=== PATIENT | female | born 1950 | race Caucasian/White ===

== ENCOUNTER 2020-08-31 09:17 | Outpatient (NON) | payer MEDICARE, SELFPAY ==
[2020-09-01 13:08] LABS: SARS-CoV-2 RNA PCR Positive
== END 2020-08-31 09:18 ==
PROVIDERS: PCP Internal Medicine; Visit Provider Clinical Nurse Specialist
DX: U07.1 COVID-19 (principal)
CPT/HCPCS: 87635; C9803; U0003

== ENCOUNTER 2020-12-29 15:27 | Outpatient (CLI) | payer MEDICARE, SELFPAY | END 2020-12-29 15:28 | disposition home or self-care (01) | LOC: ANHCOVIDVC 15:27 | PROVIDERS: PCP Internal Medicine | DX: Z23 Encounter for immunization (principal) | CPT/HCPCS: 0001A; 91300 ==

== ENCOUNTER 2021-01-19 15:28 | Outpatient (CLI) | payer MEDICARE, SELFPAY | END 2021-01-19 15:29 | disposition home or self-care (01) | LOC: ANHCOVIDVC 15:28 | PROVIDERS: PCP Internal Medicine | DX: Z23 Encounter for immunization (principal) | CPT/HCPCS: 0002A; 91300 ==

== ENCOUNTER 2021-04-14 17:14 | Emergency (ER) | payer MEDICARE, SELFPAY ==
[2021-04-14 17:20] VITALS: BP 134/74; PULSE 82; RESP 12; TEMP 36.6; O2SAT 99
--- NOTE | 2021-04-14 17:54 | ED.GENADULT ---
HPI - General Adult General Chief complaint: Ear Stated complaint: cant hear Time Seen by Provider: 04/14/21 17:54 Source: patient and RN notes reviewed Mode of arrival: ambulatory Limitations: no limitations History of Present Illness HPI narrative: 70-year-old female presents with complaints of pulsatile/non-pulsatile buzzing/ringing/hissing in the right ear for 1 day. ?Vani reports being at [place] on 04/13/2021 prior to ringing in the ear and decreased hearing, reports had on ear protection attire. ?No treatment. ? History of [place] and wearing hearing aids. ?Denies pain in ears, injury, or drainage from ears. ?Denies any other ear problems, ear disease, noise exposure, hearing status, head injury, and/or symptoms suggesting temporomandibular joint syndrome (TMJ). ?Denies drug toxicity or other medication usage. ?Denies being depressed, anxious, vascular abnormalities, or having insomnia. Denies fever. Denies URI symptoms. ?Denies nausea, vomiting, or abdominal pain. ?Denies syncopal episodes, dizziness, or seizure activity. ?Remains active. ?The patient reports she has not been diagnosed with COVID-19. The patient reports she received 2 Pfizer COVID-19 vaccines. ?The patient reports he is not waiting for the results of a COVID-19 lab test. ?The patient reports she does not have chills, weakness, or fatigue. The patient reports he does not have a new or worsening cough or shortness of breath. ?Denies chest pain. ?The patient reports he does not have any loss of taste or smell, sore throat, and diarrhea. ?Denies recent traveling. Denies concerns for COVID-19 or exposures. ?At this time, the patient is not suspected of having COVID-19. Some parts of this dictation were generated by voice recognition software and may contain typographical and/or grammatical inaccuracies. Related Data Home Medications Medication Instructions Recorded Confirmed omega-3 fatty acids 1,000 mg 1,000 mg PO DAILY 08/01/20 04/14/21 capsule Allergies Allergy/AdvReac Type Severity Reaction Status Date / Time Penicillins Allergy Unknown Hives Verified 04/14/21 17:23 Review of Systems Review of Systems: Narrative: CONSTITUTIONAL: Denies fever, chills, sweats. EYES: Denies visual changes, redness, discharge. ENT: Complains of buzzing/ringing, decreasing hearing in RT ear. Denies rhinorrhea, congestion, sore throat, otalgia. CARDIOVASCULAR: Denies chest pain, palpitations, edema. RESPIRATORY: Denies dyspnea, wheezing, cough. GASTROINTESTINAL: Denies abdominal pain, nausea, vomiting, diarrhea. GENITOURINARY: Denies dysuria, hematuria, abnormal discharge. SKIN: Denies rash or itching. MUSCULOSKELETAL: Denies acute back pain, joint pain, or myalgia. NEUROLOGIC: Denies numbness or focal weakness. PSYCHIATRIC: Denies anxiety or depression. All systems reviewed & are unremarkable except as noted in HPI and below. [facility] Past Medical History Medical History (Updated 04/15/21 @ 00:00 by Background Daemon) Arthralgia Asthma Back pain Chicken pox CTS (carpal tunnel syndrome) Depression Elevated ferritin level GERD (gastroesophageal reflux disease) History of measles, mumps, or rubella Hyperlipidemia Hypertension Kevan's syndrome Polyarthralgia PVCs (premature ventricular contractions) Vitamin D deficiency Surgical History Surgical History (Updated 04/14/21 @ 18:08 by ARIANA aCrroll) History of arthroscopic knee surgery bilateral History of bunionectomy of both great toes Hx of cholecystectomy Family History Family History Father Family history of chronic obstructive pulmonary disease Mother Family history of malignant neoplasm of ovary Other Hypertension Social History Social History (Updated 04/14/21 @ 18:09 by ARIANA Carroll) Smoking status: Never smoker Tobacco type: cigarettes Second hand tobacco smoke exposure: No Alcohol intake: cur
== END 2021-04-14 18:18 | disposition home or self-care (01) ==
PROVIDERS: Emergency Provider Nurse Practitioner Family; PCP Internal Medicine
DX: H93.11 Tinnitus, right ear (principal); H91.91 Unspecified hearing loss, right ear; J45.909 Unspecified asthma, uncomplicated; K21.9 Gastro-esophageal reflux disease without esophagitis; E78.5 Hyperlipidemia, unspecified; I10 Essential (primary) hypertension; D86.9 Sarcoidosis, unspecified; M19.90 Unspecified osteoarthritis, unspecified site; F32.9 Major depressive disorder, single episode, unspecified
CPT/HCPCS: 99211; G0463

== ENCOUNTER 2021-12-04 08:24 | Outpatient (CLI) | payer MEDICARE, SELFPAY ==
--- NOTE | ~2021-12-04 | US_ITS ---
EXAMINATION: US arterial ankle brachial ind EXAM DATE: 12/04/2021 08:56 INDICATION: I73.9 - Peripheral vascular disease, unspecified . TECHNIQUE: Segmental pressures and plethysmographic and Doppler waveforms of the brachial and lower e xtremity arteries were obtained. There is no prior study for comparison. FINDINGS: Right and left brachial artery pressures of 149 mm Hg and 156 mm Hg, respectively, are concordant (no rmal difference <= 30 mmHg). RIGHT LEG: The ankle-brachial index (LILO) is 1.05 (normal >= 0.9-1). The great toe-brachial index (TBI) is 0.65 (normal >= 0.65). The lower extremity ratios, segmental pressure gradients as follows; Dorsalis pedis: 1.02 (159 mmHg). Posterior tibial: 1.05 (164 mmHg). (Normal gradients <= 20-30 mmHg between adjacent levels on the same leg or the same levels on the two legs). Arterial waveforms are biphasic. LEFT LEG: The ankle-brachial index (LILO) is 1.08 (normal >= 0.9-1). The great toe-brachial index (TBI) is 0.89 (normal >= 0.65). The lower extremity ratios, segmental pressure gradients as follows; Dorsalis pedis: 1.04 (162 mmHg). Posterior tibial: 1.08 (168 mmHg). (Normal gradients <= 20-30 mmHg between adjacent levels on the same leg or the same levels on the two legs). Arterial waveforms are biphasic. IMPRESSION: 1. Right ankle-brachial index 1.05, normal. 2. Left ankle-brachial index 1.08, normal. 3. Segmental pressures as above. Reviewed, dictated and finalized at location B. RITY OPERATIONS ANALYST
== END 2021-12-04 08:25 | disposition home or self-care (01) ==
LOC: ANHIMG 08:27
PROVIDERS: PCP Internal Medicine; Visit Provider Nurse Practitioner
DX: I73.9 Peripheral vascular disease, unspecified (principal)
CPT/HCPCS: 93922

== ENCOUNTER 2023-01-02 08:20 | Outpatient (CLI) | payer MEDICARE, SELFPAY ==
--- NOTE | 2023-01-15 14:25 | WPDHOMESLEEP ---
Sleep Study - Home Unattended Date of Study: 01/02/23 Ordering Provider: Annabelle Araiza NP Interpreting Provider: Virginia Evans, DO Home Sleep Study Type: Watch PAT Height: 1.63 m Weight: 72.575 kg Body Mass Index: 27.4 Neck Circumference (inches): 13.25 [place]: 13 Reason for Sleep Study Snoring, fatigue Sleep History The patient is a 72-year-old female with hypertension, asthma, depression, GERD, hyperlipidemia, hypertension, diabetes, PVCs and Kevan's syndrome that had a sleep study ordered by her primary care for evaluation of sleep apnea. The patient denies awakening from sleep short of breath. She occasionally awakens at night with heartburn, belching or cough. She occasionally snores but it is rarely loudly enough that others complain. She occasionally has trouble sleeping when she has a cold. She denies waking up gasping for air throughout the night. She denies having breathing problems at night observed by herself or others. She occasionally sweats excessively at night. She rarely has heart palpitations or irregular heartbeats during the night. She frequently falls asleep during the day but never while driving. She denies sleep paralysis and cataplexy. She frequently experiences vivid dreamlike scenes upon awakening or falling asleep. She denies having trouble at school or work due to sleepiness. He denies feeling afraid of going to sleep. She rarely has nightmares. She occasionally remembers her dreams. She frequently has thoughts racing through her mind. She denies feeling sad or depressed. She rarely has anxiety. She rarely has muscular tension. She rarely notices parts of her body jerk. She denies kicking during the night. She frequently has crawling and aching feelings in her legs and occasionally has leg pain during the night. She rarely awakens with morning jaw pain. She is constantly bothered by pain during the day but rarely awakened by pain during the night. She constantly wakes up feeling stiff in the morning. She constantly wakes up with sore or achy muscles. She constantly wakes up with pain in the neck, spine and other joints. She goes to bed at 11:30 p.m. on both weekdays and weekends. She is able to fall asleep within a few minutes. She wakes up 1-2 times throughout the night to urinate and is able to fall back asleep within a few minutes. She wakes up between 8:30-9 a.m. on weekdays and weekends. She typically gets 7-8 hours of sleep per night. She will stay in bed for 10 minutes after waking up in the morning. She currently lives with her . She does not consume any caffeinated beverages within 2 hours of bedtime. She does not engage in physical exercise before bedtime. She will occasionally read and watch television before falling asleep. He will take naps in the afternoon but they are not refreshing. She will occasionally have a caffeinated beverage throughout the day. She denies tobacco, alcohol and recreational drug use. [facility] Past Medical History Medical History Arthralgia Asthma Back pain Chicken pox CTS (carpal tunnel syndrome) Depression Elevated ferritin level GERD (gastroesophageal reflux disease) History of measles, mumps, or rubella Hyperlipidemia Hypertension Kevan's syndrome Polyarthralgia PVCs (premature ventricular contractions) Type 2 diabetes mellitus Vitamin D deficiency Surgical History Surgical History H/O total knee replacement (~03/2022) History of arthroscopic knee surgery bilateral History of bunionectomy of both great toes Hx of cholecystectomy Family History Family History Father Family history of chronic obstructive pulmonary disease Mother Family history of malignant neoplasm of ovary Other Hypertension Social History Social History (Reviewed
[2023-01-15 14:35] VITALS: BMI 27.4
== END 2023-01-03 13:02 | disposition home or self-care (01) ==
PROVIDERS: PCP Internal Medicine; Visit Provider Nurse Practitioner
DX: R40.0 Somnolence (principal); R06.83 Snoring; G47.33 Obstructive sleep apnea (adult) (pediatric)
CPT/HCPCS: 95800

== ENCOUNTER 2023-09-17 07:58 | Outpatient (CLI) | payer MEDICARE, SELFPAY ==
--- NOTE | ~2023-09-17 | CT_ITS ---
EXAMINATION: CT abdomen pelvis wo/w con DATE: 09/17/2023 08:45 INDICATION: Microscopic hematuria. TECHNIQUE: Computed tomography (CT) of the abdomen and pelvis was performed without and with intraven ous contrast using a total of 130 mL Omnipaque-350 intravenous contrast with a double-bolus technique for simultaneous opacification of the renal parenchyma and renal collecting system. Automated exposu re control and iterative reconstruction technique were employed. The dose-length product was 1886.61 mGy-cm. COMPARISON: None FINDINGS: The visualized portions of the lung bases demonstrate mild atelectasis. No pleural effusion. The hear t size is normal. There are coronary artery calcifications. No pericardial effusion. There is a small sliding hiatal hernia. The liver and spleen are normal. There are changes of cholecystectomy. The pa ncreas and adrenal glands are normal. There is no urolithiasis. There are cysts in the kidneys measur ing up to 4 mm on the left. The ureters are well opacified and are normal. The bladder is normal. The re is diverticulosis of the colon without evidence of diverticulitis. There is a 3.0 cm cyst in left ovary, likely benign. Aortic atherosclerosis is noted. There are no pathologically enlarged lymph nod es. There is no free intraperitoneal fluid. There is severe lower lumbar spondylosis. There is modera te thoracic spondylosis. IMPRESSION: 1. No etiology for hematuria. 2. 3.0 cm cyst in left ovary, likely benign. Pelvis ultrasound is recommended in one year. Reviewed, dictated and finalized at location E. PER IMPRESSION: 1. No etiology for hematuria. 2. 3.0 cm cyst in left ovary, likely benign. Pelvis ultrasound is recommended i n one year.
[2023-09-17 08:26] LABS: Estimated Glomerular Filt Rate > 60
== END 2023-09-17 07:59 | disposition home or self-care (01) ==
PROVIDERS: PCP Internal Medicine; Visit Provider Nurse Practitioner Adult Health
DX: R31.29 Other microscopic hematuria (principal); N83.202 Unspecified ovarian cyst, left side
CPT/HCPCS: 74178; Q9967

== ENCOUNTER 2023-11-14 07:55 | Outpatient (CLI) | payer MEDICARE, SELFPAY ==
--- NOTE | ~2023-11-14 | DEXA_ITS ---
Bone Density Report Name: HUGO CULVER Age: 73 Sex: Female Ethnicity: White Date of : 1950 Indication: postmenopausal; screening for osteoporosis; height loss; Referring Provider: ALEXEI STEIN Study: Bone densitometry was performed. Exam Date: November 14, 2023 Accession number: [id number] Bone Density: Region BMD T-score Z-score Classification AP Spine(L1-L4) 0.946 -0.9 1.3 Normal Femoral Neck (Left) 0.703 -1.3 0.6 Osteopenia Total Hip (Left) 0.796 -1.2 0.4 Osteopenia Femoral Neck (Right) 0.729 -1.1 0.8 Osteopenia Total Hip (Right) 0.793 -1.2 0.4 Osteopenia Total Hip Mean 0.795 -1.2 0.4 Osteopenia World Health Organization criteria for BMD impression classify patients as: Normal (T-score at or above -1.0), Osteopenia (T-score between -1.0 and -2.5), or Osteoporosis (T-score at or below -2.5). 10-year Fracture Risk(1): Major Osteoporotic Fracture 9.8% Hip Fracture 1.4% Reported Risk Factors: [place] (), Neck BMD=0.703, BMI=29.8 (1) FRAX(R) Version 3.08. Fracture probability calculated for an untreated patient. Fracture probability may be lower if the patient has received treatment. Clinical Information Provided by Patient: Patient maximum height was 64.5 Menopause Age: 48 Onset of menses at age 14 Number of children 2 Impression: The patient has low bone mass, based on the Left Femoral Neck T-score. The patient has an estimated ten-year risk of hip fracture of 1.4% and an estimated ten-year risk of major fracture of 9.8%, based on the WHO FRAX algorithm. Discussion: BONE DENSITY IS LOW AT ONE OR MORE SKELETAL SITES. This patient's lowest T-score is low at one or more skeletal sites. It meets the World Health Organization's (WHO) criteria for ?low bone mass? (T-score between -1.0 and -2.5). The patient's 10-year risk of fracture as calculated by FRAX is less than the threshold where pharmacological therapy is recommended by the National Osteoporosis Foundation (NOF). However, all treatment decisions require clinical judgment and consideration of individual patient factors, including patient preferences, comorbidities, previous drug use, risk factors not captured in the FRAX model (e.g., frailty, falls, vitamin D deficiency, increased bone turnover, interval significant decline in bone density) and possible under or overestimation of fracture risk by FRAX. The patient should follow a healthful lifestyle (good nutrition with adequate calcium and vitamin D, and appropriate weight-bearing exercise). Follow-Up: Consider repeating this study in 2 to 3 years to reassess this patient's status, or sooner if there is some new clinical indication. Reported by: VANESSA on 11/14/2023 8:22:00 AM. Reviewed, dictated
== END 2023-11-14 07:56 | disposition home or self-care (01) ==
PROVIDERS: PCP Internal Medicine; Visit Provider Nurse Practitioner
DX: M85.89 Other specified disorders of bone density and structure, multiple sites (principal); Z78.0 Asymptomatic menopausal state
CPT/HCPCS: 77080

== ENCOUNTER 2023-11-27 19:42 | Observation (INO) | payer MEDICARE, SELFPAY ==
--- NOTE | ~2023-11-27 | CT_ITS ---
EXAMINATION: CT abdomen pelvis w con DATE: 11/27/2023 21:28 INDICATION: Right lower quadrant abdominal pain TECHNIQUE: Computed tomography (CT) of the abdomen and pelvis was performed with 100 mL Omnipaque-350 intravenous contrast. Automated exposure control and iterative reconstruction technique were employe d. The dose-length product was 534.30 mGy-cm. COMPARISON: None FINDINGS: Mild atelectasis at the bilateral lung bases. Heart size is normal. No pericardial or pleural effusio n. Small amount of atherosclerotic coronary artery calcification. Mild intra and extra hepatic biliar y ductal dilation which is within normal limits post cholecystectomy with surgical clips the gallblad sarwat fossa. Spleen, pancreas, bilateral adrenal glands and kidneys are normal. Bladder and uterus are normal. Unchanged small bilateral adnexal cysts, the larger on the left measuring 2.8 cm. There is so me trace stranding surrounding the dilated fluid-filled appendix which measures 1.1 cm maximal diamet er consistent with acute appendicitis. There is suggestion of a 5 mm obstructing appendicolith at the appendiceal orifice. There are few diverticula along the sigmoid colon without adjacent comparison t o suggest diverticular colitis. No bowel obstruction. Small fat-containing umbilical hernia. No free intraperitoneal gas or fluid. No pathologically enlarged abdominal or pelvic lymphadenopathy. Severe lower lumbar spondylosis. IMPRESSION: 1. Acute appendicitis. Dr. Hickey discussed these findings with Dr. Coyle at 9:38 PM. Reviewed, dictated and finalized at location A. S DESIGNER IMPRESSION: 1. Acute appendicitis. Dr. Hickey discussed these findings with Dr. Leonides arzola t 9:38 PM.
[2023-11-27 19:58] VITALS: BP 139/58; PULSE 87; RESP 17; TEMP 37.2; O2SAT 100
[2023-11-27] MEDS: SODIUM CHLORIDE 0.9% IV 1,000 ML 999 ML IV CONT (20:21)
[2023-11-27] MEDS: MORPHINE SULFATE (*CRX) 4 MG/ML INJ IV PUSH (20:23)
[2023-11-27] MEDS: ONDANSETRON INJ 4 MG/2 ML VIAL IV PUSH (20:23)
[2023-11-27 20:29] VITALS: BP 146/90; PULSE 70; RESP 15; TEMP 36.7; O2SAT 99
[2023-11-27 20:47] LABS: Basophils Percent Auto 0.3 % (0.2-1.2); Eosinophils Percent Auto 0.3 % (0-4.4); Hematocrit 37.7 % (37.0-47.0); Hemoglobin 12.3 g/dL (12.0-15.0); Immature Granulocyte Absolute 0.05 K/mm3 (0.00-0.031); Immature Granulocyte Percent A 0.4 % (0-0.5); Lymphocytes Absolute Auto 0.88 K/mm3 (0.9-3.2); Lymphocytes Percent Auto 7.1 % (18.3-44.2); Mean Corpuscular HGB Conc 32.6 g/dl (32-36); Mean Corpuscular Hemoglobin 28.6 pg (26-34); Mean Corpuscular Volume 87.7 fl (80-100); Mean Platelet Volume 10.6 fl (7.4-10.4); Monocytes Absolute Auto 0.6 K/mm3 (0.1-0.6); Monocytes Percent Auto 4.6 % (2.6-8.5); Neutrophils Absolute Auto 10.9 K/mm3 (1.3-6.7); Neutrophils Percent Auto 87.3 % (45.5-73.1); Platelet Count Result 185 k/mm3 (150-375); Red Cell Distribution Width 13.2 % (11.5-14.5); White Blood Count 12.5 K/mm3 (4.5-10.0)
--- NOTE | 2023-11-27 21:07 | ED.ABDPAIN ---
HPI - Abdominal Pain General Chief Complaint: Abdominal Pain Stated Complaint: RLQ pain Time Seen by Provider: 11/27/23 20:08 History of Present Illness HPI narrative: Patient is a 73-year-old female who presents ER with abdominal pain. Reports generalized discomfort beginning this afternoon that has now settled in the right lower quadrant. She thought it was initially gas. No diarrhea or constipation. No fevers chills or sweats. She is without nausea or vomiting. Pain is worse with movement. No alleviating factors. Related Data Home Medications Medication Instructions Recorded Confirmed aspirin 81 mg tablet,delayed 81 mg PO DAILY 11/09/22 11/11/23 release (Adult Low Dose Aspirin) Allergies Allergy/AdvReac Type Severity Reaction Status Date / Time Penicillins Allergy Unknown Hives Verified 11/11/23 10:09 Review of Systems Review of Systems: All systems reviewed & are unremarkable except as noted in HPI and below Constitutional: Constitutional: Denies chills, Denies fatigue and Denies fever(s) ENT: Reports system reviewed and no additional complaints, except as documented Cardiovascular: Cardiovascular: Reports no additional cardiovascular complaints Respiratory: Respiratory: Reports no additional respiratory complaints Gastrointestinal: Gastrointestinal: Reports abdominal pain, Reports bloating, Denies constipation, Denies diarrhea, Denies nausea and Denies vomiting Genitourinary: Genitourinary: Reports no additional female genitourinary complaints [facility] Past Medical History Medical History (Updated 11/27/23 @ 21:57 by Darshan Coyle MD) Arthralgia Asthma Back pain Chicken pox CTS (carpal tunnel syndrome) Depression Elevated ferritin level GERD (gastroesophageal reflux disease) History of measles, mumps, or rubella Hyperlipidemia Hypertension Kevan's syndrome Polyarthralgia PVCs (premature ventricular contractions) Type 2 diabetes mellitus Vitamin D deficiency Surgical History Surgical History H/O total knee replacement (~03/2022) History of arthroscopic knee surgery bilateral History of bunionectomy of both great toes Hx of cholecystectomy Family History Family History (Updated 11/11/23 @ 10:13 by Sarahy Villavicencio CMA) Father Family history of chronic obstructive pulmonary disease Mother Family history of malignant neoplasm of ovary Daughter Colorectal cancer Other Hypertension Social History Social History Social History: Caffeine-none Smoking status: Never smoker Tobacco type: cigarettes Second hand tobacco smoke exposure: No Alcohol intake: current Alcohol use details: occasional Substance use: never Substance use type: does not use Lack of Transportation: No Lack of Food: Never True Current Housing: I Have Housing Concerned About Future Housing: No Difficulty Paying Gas/Electric Bills: No Difficulty Paying for Meds: No Currently Unemployed: No Education: High School Diploma/GED Difficulty w/ Childcare or Family Care: No Living arrangements: with family Occupation/Education: retired Gender identity (if verbalized by the patient): Female Sexual Orientation (if Verbalized by the Patient): Straight or Heterosexual Exam Narrative: GENERAL: Well-appearing, well-nourished, and in no acute distress. HEAD: Normocephalic, atraumatic. ENT: Mucous membranes moist. NECK: Supple. CHEST: Clear to auscultation. No respiratory distress. HEART: Regular rate and rhythm. Normal peripheral pulses. ABDOMEN: Soft, very tender to palpation right lower quadrant with guarding,nondistended, normal active bowel sounds. EXTREMITIES: Normal range of motion. No edema. SKIN: Warm, dry, no rash. NEURO: Alert and oriented x3. PSYCH: Normal mood and affect. Course Course Emergency Course: Patient resting comfortably.
[2023-11-27 21:14] LABS: Alanine Aminotransferase 23 U/L (6-35); Albumin Level 4.3 g/dL (3.5-5.1); Alkaline Phosphatase 88 U/L (38-126); Anion Gap 9 mmol/L (8-16); Aspartate Amino Transferase 39 U/L (14-36); Bilirubin,Total 0.9 mg/dL (0.2-1.3); Blood Urea Nitrogen 20 mg/dL (7-17); Calcium 9.1 mg/dL (8.4-10.2); Carbon Dioxide 27 mmol/L (22-30); Chloride 103 mmol/L (98-107); Estimated CRCL calculation 53 ml/min; Estimated Glomerular Filt Rate > 60; Glucose 120 mg/dL (65-110); Lipase 94 U/L (23-300); Potassium 3.7 mmol/L (3.4-5.0); Sodium 139 mmol/L (137-145)
[2023-11-27 21:17] LABS: Appearance Urine Clear (Clear); Bacteria Urine None Seen /hpf; Bilirubin Urine Negative (Negative); Color Urine Yellow (Yellow); Glucose Urine UA Negative (Negative); Ketones Urine Trace mg/dL (Negative); Leukocyte Esterase Ur Negative LEU/UL (Negative); Nitrate Urine Negative (Negative); Non Pathogenic Casts 0-2; Protein Urine Negative (Negative); Specific Grav Ur 1.011 (1.001-1.035); Squamous Epithelial Cell Urine None seen /hpf (Few); Urobilinogen Urine 0.2 mg/dL (<2.0); WBC Urine 0-5 /hpf; pH Urine 7.5 (5.0-9.0)
[2023-11-27 21:22] LABS: Add Urine Microscopic? YES
[2023-11-27] MEDS: SODIUM CHLORIDE 0.9% IV 1,000 ML 125 ML IV CONT (22:38)
[2023-11-27] MEDS: metroNIDAZOLE 500 MG/ISO 100ML 500 MG/100 ML BAG 100 MG IVPB (22:38)
[2023-11-27 22:43] VITALS: BP 137/94; PULSE 83; RESP 17; O2SAT 95
[2023-11-27 22:44] VITALS: PULSE 84
[2023-11-27 23:30] VITALS: O2SAT 95
--- NOTE | 2023-11-27 23:30 | PC.NURSE ---
Patient has hx of using CPAP at night to sleep. While patient was falling asleep her SPO2 fell to 88%. 2L/min of oxygen via nasal cannula applied and SPO2 now 95%.
[2023-11-28] VITALS (8 sets, daily range): BP systolic 124–151; BP diastolic 45–85; PULSE 68–85; RESP 12–20; TEMP 36.6–37.7; O2SAT 95–100; BMI 29.2
--- NOTE | 2023-11-28 00:34 | ADMGEN ---
This patient, Kayleen Nugent, was admitted to [facility] Surg Room 306-02. Patient/family oriented to hospital policies and general routines including ID bracelet, bed and alarms, visiting hours, pain management, procedures, bathroom and other care routines, personal items, smoking policy, room service/diet, and visiting hours. Information on how to activate the Rapid Response Team has been discussed. Patient/Family are encouraged to report perceived risks to care and to ask questions if they do not understand what they are told or what they should do.
--- NOTE | 2023-11-28 00:41 | ADMGEN ---
This patient, Kayleen Nugent, was admitted to [facility] Surg Room 306-02. Patient/family oriented to hospital policies and general routines including ID bracelet, bed and alarms, visiting hours, pain management, procedures, bathroom and other care routines, personal items, smoking policy, room service/diet, and visiting hours. Information on how to activate the Rapid Response Team has been discussed. Patient/Family are encouraged to report perceived risks to care and to ask questions if they do not understand what they are told or what they should do.
[2023-11-28] MEDS: metroNIDAZOLE 500 MG/ISO 100ML 500 MG/100 ML BAG 100 MG IVPB (06:31)
[2023-11-28] MEDS: MORPHINE SULFATE (*CRX) 2 MG/ML INJ IV PUSH (06:32)
[2023-11-28 07:14] LABS: Basophils Percent Auto 0.2 % (0.2-1.2); Eosinophils Percent Auto 0.2 % (0-4.4); Hematocrit 36.6 % (37.0-47.0); Hemoglobin 11.4 g/dL (12.0-15.0); Immature Granulocyte Absolute 0.05 K/mm3 (0.00-0.031); Immature Granulocyte Percent A 0.4 % (0-0.5); Lymphocytes Absolute Auto 1.24 K/mm3 (0.9-3.2); Lymphocytes Percent Auto 10.1 % (18.3-44.2); Mean Corpuscular HGB Conc 31.1 g/dl (32-36); Mean Corpuscular Hemoglobin 28.4 pg (26-34); Mean Corpuscular Volume 91.3 fl (80-100); Mean Platelet Volume 10.6 fl (7.4-10.4); Monocytes Absolute Auto 0.7 K/mm3 (0.1-0.6); Monocytes Percent Auto 5.4 % (2.6-8.5); Neutrophils Absolute Auto 10.3 K/mm3 (1.3-6.7); Neutrophils Percent Auto 83.7 % (45.5-73.1); Platelet Count Result 180 k/mm3 (150-375); Red Blood Count 4.01 M/mm3 (4.2-5.4); Red Cell Distribution Width 13.2 % (11.5-14.5); White Blood Count 12.3 K/mm3 (4.5-10.0)
[2023-11-28 07:51] LABS: Anion Gap 6 mmol/L (8-16); Blood Urea Nitrogen 12 mg/dL (7-17); Calcium 8.5 mg/dL (8.4-10.2); Carbon Dioxide 27 mmol/L (22-30); Chloride 105 mmol/L (98-107); Estimated CRCL calculation 54 ml/min; Estimated Glomerular Filt Rate > 60; Glucose 108 mg/dL (65-110); Potassium 3.6 mmol/L (3.4-5.0); Sodium 138 mmol/L (137-145)
--- NOTE | 2023-11-28 07:56 | PM.IMHP ---
H&P: HPI History of Present Illness Date/Time: 11/28/23 07:56 Chief Complaint: Acute appendicitis Narrative: Pt presented to the ER last night with 8 hr hx of lower abd pain that localized to RLQ abd. WBC 07140 in ER, VSS. CT abd/pelvis showed non ruptured acute appendicitis with appendix fluid filled and diameter 11 mm. Trace periappendical fluid and some min periappendiceal inflammation. Started on IV abx and kept NPO. WBC still about [id number] this am. Pain is RLQ c/w acute appendicitis on exam. Review of Systems Review of Systems: The remainder of the review of systems to include constitutional, HEENT, cardiovascular, respiratory, GI, , integumentary, musculoskeletal, endocrine, immunologic, hematologic, psychiatric, and neurologic are all negative except for which is mentioned above in the HPI. [facility] Past Medical History Medical History Arthralgia Asthma Back pain Chicken pox CTS (carpal tunnel syndrome) Depression Elevated ferritin level GERD (gastroesophageal reflux disease) History of measles, mumps, or rubella Hyperlipidemia Hypertension Kevan's syndrome Polyarthralgia PVCs (premature ventricular contractions) Type 2 diabetes mellitus Vitamin D deficiency Surgical History Surgical History H/O total knee replacement (~03/2022) History of arthroscopic knee surgery bilateral History of bunionectomy of both great toes Hx of cholecystectomy Family History Family History Father Family history of chronic obstructive pulmonary disease Mother Family history of malignant neoplasm of ovary Daughter Colorectal cancer Other Hypertension Social History Social History Social History: Caffeine-none Smoking status: Never smoker Tobacco type: cigarettes Second hand tobacco smoke exposure: No Alcohol intake: never Alcohol use details: occasional Substance use: never Substance use type: does not use Do You Feel Safe in your Home?: Yes Lack of Transportation: No Lack of Food: Never True Current Housing: I Have Housing Concerned About Future Housing: No Difficulty Paying Gas/Electric Bills: No Difficulty Paying for Meds: No Currently Unemployed: No Education: High School Diploma/GED Difficulty w/ Childcare or Family Care: No Living arrangements: with family Occupation/Education: retired Gender identity (if verbalized by the patient): Female Sexual Orientation (if Verbalized by the Patient): Straight or Heterosexual Spiritual care concerns: No Meds Home Medications and Allergies Home Medications Medication Instructions Recorded Confirmed Type escitalopram oxalate 5 mg tablet See Rx Instructions .Route 08/27/22 11/28/23 Rx .COMPLEX #45 tabs aspirin 81 mg tablet,delayed 81 mg PO DAILY 11/09/22 11/28/23 History release (Adult Low Dose Aspirin) lisinopril 5 mg tablet See Rx Instructions .Route 09/13/23 11/28/23 Rx .COMPLEX #90 tabs amlodipine 2.5 mg tablet See Rx Instructions .Route 09/26/23 11/28/23 Rx .COMPLEX #90 tabs omeprazole 40 mg capsule,delayed 40 mg PO DAILY #90 caps 09/30/23 11/28/23 Rx release evolocumab 140 mg/mL subcutaneous See Rx Instructions .Route 11/04/23 11/28/23 Rx pen injector (Sisi Martin) .COMPLEX #6 mL Allergies Allergy/AdvReac Type Severity Reaction Status Date / Time Penicillins Allergy Unknown Hives Verified 11/28/23 07:59 Vital Signs Vital Signs - 24 hr 11/27/23 19:58 11/27/23 20:29 11/27/23 22:43 Temperature 37.2 C 36.7 C Pulse Rate 87 70 83 Respiratory Rate 17 15 17 Blood Pressure 139/58 L 146/90 H 137/94 H Pulse Oximetry 100 99 95 Oxygen Delivery Room Air Oxygen Flow Rate 11/27/23 22:44 11/27/23 23:30 11/28/23 00:03 Temperature 36.7 C Pulse Rate 84
--- NOTE | 2023-11-28 07:56 | WPDANESEPP ---
Anes - Eval Pre Procedure Procedure: Operation Date: 11/28/23 08:00 Proposed Procedures p Laparoscopic Appendectomy - Reed Zamora MD Date/Time: 11/28/23 07:56 Pre Op Diagnosis: Appendicitis Patient Data Age: 73 Gender: F Height: 1.6 m Weight: 75 kg Last Vital Signs Temp 97.9 F 11/28/23 06:00 Pulse 74 11/28/23 06:00 Resp 18 11/28/23 06:00 BP 138/85 11/28/23 06:00 Pulse Ox 99 11/28/23 06:00 O2 Del Method Nasal Cannula 11/27/23 23:30 O2 Flow Rate 2 11/27/23 23:30 Allergies Allergy/AdvReac Type Severity Reaction Status Date / Time Penicillins Allergy Unknown Hives Verified 11/11/23 10:09 Home Medications Medication Instructions Recorded Confirmed Type escitalopram oxalate 5 mg tablet See Rx Instructions .Route 08/27/22 11/28/23 Rx .COMPLEX #45 tabs aspirin 81 mg tablet,delayed 81 mg PO DAILY 11/09/22 11/28/23 History release (Adult Low Dose Aspirin) lisinopril 5 mg tablet See Rx Instructions .Route 09/13/23 11/28/23 Rx .COMPLEX #90 tabs amlodipine 2.5 mg tablet See Rx Instructions .Route 09/26/23 11/28/23 Rx .COMPLEX #90 tabs omeprazole 40 mg capsule,delayed 40 mg PO DAILY #90 caps 09/30/23 11/28/23 Rx release evolocumab 140 mg/mL subcutaneous See Rx Instructions .Route 11/04/23 11/28/23 Rx pen injector (Sisi Martin) .COMPLEX #6 mL Laboratory Tests 11/27/23 11/27/23 11/28/23 20:24 21:04 06:51 WBC 12.5 H K/mm3 12.3 H K/mm3 (4.5-10.0) (4.5-10.0) RBC 4.30 M/mm3 4.01 L M/mm3 (4.2-5.4) (4.2-5.4) Hgb 12.3 g/dL 11.4 L g/dL (12.0-15.0) (12.0-15.0) Hct 37.7 % 36.6 L % (37.0-47.0) (37.0-47.0) MCV 87.7 fl 91.3 fl (80-100) (80-100) MCH 28.6 pg 28.4 pg (26-34) (26-34) MCHC 32.6 g/dl 31.1 L g/dl (32-36) (32-36) RDW 13.2 % 13.2 % (11.5-14.5) (11.5-14.5) Plt Count 185 k/mm3 180 k/mm3 (150-375) (150-375) MPV 10.6 H fl 10.6 H fl (7.4-10.4) (7.4-10.4) Immature Gran % (Auto) 0.4 % 0.4 % (0-0.5) (0-0.5) Neut % (Auto) 87.3 H % 83.7 H % (45.5-73.1) (45.5-73.1) Lymph % (Auto) 7.1 L % 10.1 L % (18.3-44.2) (18.3-44.2) [place] % (Auto) 4.6 % 5.4 % (2.6-8.5) (2.6-8.5) Eos % (Auto) 0.3 % 0.2 % (0-4.4) (0-4.4) Baso % (Auto) 0.3 % 0.2 % (0.2-1.2) (0.2-1.2) Lymph # (Auto) 0.88 L K/mm3 1.24 K/mm3 (0.9-3.2) (0.9-3.2) [place] # (Auto) 0.6 K/mm3 0.7 H K/mm3 (0.1-0.6) (0.1-0.6) Eos # (Auto) 0.0 K/mm3 0.0 K/mm3 (0-0.3) (0-0.3) Baso # (Auto) 0.0 K/mm3 0.0 K/mm3 (0.0-0.1) (0.0-0.1) Abs Immat Gran (auto) 0.05 H K/mm3 0.05 H K/mm3 (0.00-0.031) (0.00-0.031) Absolute Neuts (auto) 10.9 H K/mm3 10.3 H K/mm3 (1.3-6.7) (1.3-6.7) Absolute Nucleated RBC 0.0 K/mm3 0.0 K/mm3 (0.0-0.012) (0.0-0.012) Nucleated RBC % 0.0 % 0.0 % (0.0-0.2) (0.0-0.2) Sodium 139 mmol/L 138 mmol/L (137-145) (137-145) Potassium 3.7 mmol/L 3.6 mmol/L (3.4-5.0) (3.4-5.0) Chloride 103 mmol/L 105 mmol/L (98-107) (98-107) Carbon Dioxide 27 mmol/L 27 mmol/L (22-30) (22-30) Anion Gap 9 mmol/L 6 L mmol/L (8-16) (8-16) BUN 20 H mg/dL 12 D mg/dL (7-17) (7-17) Creatinine 0.80 mg/dL 0.80 mg/dL (0.7-1.0) (0.7-1.0) Estim Creat Clear Calc 53 ml/min 54 ml/min Estimated GFR > 60 > 60 (59 - ) (59 - ) Glucose 120 H mg/dL 108 mg/dL (65-110) (65-110) Calcium 9.1 mg/dL 8.5 mg/dL (8.4-10.2) (8.4-10.2) Total Bilirubin 0.9 mg/dL (0.2-1.3) AST 39 H U/L (14-36) ALT 23 U/L (6-35) Alkaline Phosphatase 88 U/L (38-126) Total Protein 7.0 g/dL (6.3-8.2) Albumin 4.3 g/dL (3.5-5.1) Lipase 94 U/L (23-300) Urine Color Yellow (Yellow) Urine Appearance Clear
--- NOTE | 2023-11-28 07:59 | P.PNAN_ITS ---
Anes - Eval Final PreProcedure Day of Procedure 11/28/23 07:59 Patient weight: overweight Heart: regular rate and rhythm Lungs: clear to auscultation Airway: Mallampati scale class II Neurological: alert and oriented Last oral intake: >/= 8 hours ASA classification: III Emergent: no Anesthetic plan: proceed Anesthesia type and monitoring: general ETT and standard monitoring Results Review: All pre-operative results and documents have been reviewed as part of the pre- operative evaluation. Informed Consent: The patient's anesthetic plan and its attendant risks and benefits were discussed with the patient/family/POA. Questions were solicited and answers provided to the satisfaction of the patient/family/POA.
--- NOTE | 2023-11-28 08:06 | WPDHPUPDATE1 ---
History and Physical Update Update Date/Time: 11/28/23 08:06 History and Physical has been reviewed, including an updated exam of the patient. There are NO changes in the patient's condition. Risks, benefits, and alternatives have been discussed and questions answered. Patient agrees to proceed with procedure.
[2023-11-28] MEDS: LIDO 1%/EPINEPHRINE 1:100,000 50 ML VIAL 20 ML INFILTRATE (08:51)
[2023-11-28] MEDS: BUPivacaine HCL 0.5% PF 30 ML VIAL INFILTRATE (08:52)
[2023-11-28] MEDS: LACTATED RINGERS 1,000 ML 30 ML IV CONT ×2 (09:09→09:23)
--- NOTE | 2023-11-28 09:39 | W.PM.PROC2 ---
Procedure Note - Detailed Date of Procedure 11/28/23 Pre-op Diagnosis Acute appendicitis Post-op Diagnosis Same Procedure Performed Laparoscopic appendectomy. Surgeon Reed Zamora MD Shoveler MARITZA Kruger Anesthesia General Indications Patient is a 73-year-old white female presented to the emergency room with a 8 to 12 hour history of worsening lower abdominal pain which localized to right lower quadrant the abdomen. Workup in the emergency room showed normal white blood cell count and she was hemodynamically stable. Exam revealed point tenderness in the right lower quadrant the abdomen over Jenna point. CT scan abdomen pelvis was performed showing a dilated chief and fluid-filled appendix measuring up to 11mm in diameter with what appeared to be a small appendicolith at the appendiceal orifice. There was some mild periappendiceal inflammation. She is being brought to the operating now for emergent laparoscopic appendectomy. Findings The appendix was inflamed starting at the base extending to the midportion of the appendix. There is no necrosis of the appendiceal wall. There is no periappendiceal abscess no perforation. Limited localized peritonitis was seen. Description of Procedure After informed consent was obtained patient brought to the operating room she was placed supine position and general endotracheal anesthesia was administered. A Gonzalez catheter was placed decompress the bladder the abdomen was then prepped and draped usual sterile fashion. A time-out was then performed correctly identifying the patient as well as procedure to be performed. She was already on scheduled IV antibiotics. I entered the abdomen utilizing a 5mm Optiview port in the left upper quadrant. Once inside the abdomen insufflated to adequate pneumoperitoneum of 15mmHg of CO2. There were no adhesions to obscure the right lower quadrant the abdomen. Then placed a 12mm periumbilical trocar port as well as 2 more 5mm trocar ports in the suprapubic region and the right lower quadrant the abdomen. Working through these ports I was able to identify the appendix in the right lower quadrant. I held the appendix up with a laparoscopic grasper then made a defect through the mesoappendix utilizing [place] dissector. I then used a 45mm Endo-DONA stapler to divide the appendix flush with the cecum. A white vascular load to the Endo-DONA staple was then used to divide the mesoappendix. The appendix was then placed into an Endo-Catch bag and brought out through the periumbilical trocar port site. It was passed off table to pathology for examination. I then irrigated both staple lines sterile saline solution hemostasis was excellent. I then proceeded to aspirate the fluid from the pelvis and from the right upper quadrant the abdomen. I then removed all the trocar ports under visualization all port sites appeared hemostatic. I then allowed the abdomen to decompress. I then closed the 12mm periumbilical trocar port fascial defect utilizing 0 Vicryl suture in the fascia. This closed the defect nicely. I then closed all the port sites at the skin level utilizing a running subcuticular 4 Monocryl suture. The incisions were then cleaned and skin glue sterile dressings were applied. The patient tolerated the procedure well no complications. All sponges, needles, and instrument counts were correct at the end procedure. EBL was 10___cc. The patient was awakened and taken to recovery in stable and satisfactory condition. Implants None Estimated Blood Loss 10 Drains No Packing No Pathology Yes (Appendix to pathology) Complications No immediate complications Condition Stable Disposition PACU [facility] Billing Surgery - Charge Forward: Surgery Billing
[2023-11-28] MEDS: PANTOPRAZOLE 40 MG TABLET PO (11:03)
[2023-11-28] MEDS: lisinopriL 5 MG TABLET BY MOUTH (11:03)
[2023-11-28] MEDS: SODIUM CHLORIDE 0.9% IV 1,000 ML 125 ML IV CONT (11:18)
--- NOTE | 2023-11-28 19:16 | PM.DS ---
DS: Admitting Diagnosis Discharge Date 11/28/23 Admitting Diagnosis Acute appendicitis DS: Discharge Diagnosis Discharge Diagnosis (1) Acute appendicitis: Code(s): K35.80 - Unspecified acute appendicitis Status: Acute DS: Summary Hospital Course Reason for hospitalization: acute appendicitis Hospital Course: patient presented to the hospital through the emergency room with complaint [id number] history of worsening lower abdominal pain which had localized right lower quadrant the abdomen. Workup in the emergency room revealed elevated white blood cell count of 12,[address] scan abdomen pelvis showed a dilated fluid-filled appendix up to 11mm in diameter with some mild periappendiceal inflammatory changes. No perforation or abscess was seen. She was then admitted to the hospital kept NPO. Started on IV antibiotics and hydrated with IV fluids. The next morning she was taken to the operating room emergently for a straight forward laparoscopic appendectomy. Postoperatively her course in the recovery was uneventful and she was transferred back to the surgical floor for postoperative care. Will a surgical floor she was able to get up and ambulate to the bathroom in the halls without difficulty. Pain was well controlled with only oral pain medications. She started on full liquids and then was advanced to a regular diet which he tolerated without any difficulty. On the evening of postop day 1. Her incisions were healing well without any redness or drainage. Her pain was well controlled and she was able to spontaneously ambulate and urinate. It was decided at this point that she be discharged home in improved condition. Status at Discharge Functional status at discharge: independent ambulation Overall status at discharge: patient is back to baseline Time Spent with Patient Time attestation: Total time spent providing and/or coordinating discharge services: Time spent: Less than 30 minutes Exam Const: General: cooperative and healthy appearing HENMT: Head: normal to inspection and No palpable skull fracture present Ears: hearing grossly normal bilaterally Mouth: Yes Normal oral and palatal mucosa present Chest: Chest palpation & inspection: normal inspection of the chest Resp: Effort & Inspection: normal respiratory effort and able to speak in complete sentences Cardio: Jugular venous distension: no JVD Rate: regular rate Rhythm: regular rhythm GI: Other: Abdomen is soft and nondistended. Port sites dressed with skin glue redness or drainage. Expected mild tenderness around the port sites. Prior right lower quadrant pain has resolved. Skin: General skin exam: normal color and no rashes or lesions noted Neuro: General: oriented to person, oriented to place, oriented to time and CN's II-XI intact bilaterally Extrem: General: normal to inspection and full ROM Psych: Appearance: grossly normal Mental Status: mental status grossly normal DS: Data Data Completed and Pending Pending studies at discharge: Pending at discharge 11/28/23 08:48 Surgical [PTH] Routine Labs on day of discharge: Labs from last 24 hours 11/28/23 11/27/23 11/27/23 06:51 21:04 20:24 WBC 12.3 H 12.5 H RBC 4.01 L 4.30 Hgb 11.4 L 12.3 Hct 36.6 L 37.7 MCV 91.3 87.7 MCH 28.4 28.6 MCHC 31.1 L 32.6 RDW 13.2 13.2 Plt Count 180 185 MPV 10.6 H 10.6 H Immature Gran % (Auto) 0.4 0.4 Neut % (Auto) 83.7 H 87.3 H Lymph % (Auto) 10.1 L 7.1 L [place] % (Auto) 5.4 4.6 Eos % (Auto) 0.2 0.3 Baso % (Auto) 0.2 0.3 Lymph # (Auto) 1.24 0.88 L [place] # (Auto) 0.7 H 0.6 Eos # (Auto) 0.0 0.0 Baso # (Auto) 0.0 0.0 Abs Immat Gran (auto) 0.05 H 0.05 H Absolute Neuts (auto) 10.3 H 10.9 H Absolute Nucleated RBC 0.0 0.0 Nucleated RBC % 0.0 0.0 Sodium 138 139 Potassium 3.6 3.7 Chloride 105 103 Carbon Dioxide 27 27 Anion Gap 6 L 9 BUN 12
== END 2023-11-28 18:15 | disposition home or self-care (01) ==
LOC: ANHED 21:57 → ANH3MEDSUR 23:08
PROVIDERS: Admitting Provider Surgery; Emergency Provider Emergency Medicine; PCP Internal Medicine; Visit Provider Surgery
PROC: 0DTJ4ZZ Resection of Appendix, Percutaneous Endoscopic Approach (ICD-10-PCS; CPT 44970; principal; 2023-11-28 08:00)
DX: K35.80 Unspecified acute appendicitis (principal); F32.A Depression, unspecified; I10 Essential (primary) hypertension; E78.5 Hyperlipidemia, unspecified; K21.9 Gastro-esophageal reflux disease without esophagitis; Z79.82 Long term (current) use of aspirin; Z79.899 Other long term (current) drug therapy
CPT/HCPCS: 44970; 36415; 74177; 80048; 80053; 81001; 83690; 85025; 88304; 96361; 96365; 96367; 96375; 99285; A9270; G0378; J0696; J1100; J1836; J2270; J2405; J2704; J3010; J7030; J7120; Q9967

== ENCOUNTER 2024-03-25 07:56 | Outpatient (CLI) | payer MEDICARE, SELFPAY | END 2024-03-25 07:57 | disposition home or self-care (01) | LOC: ANHAUDASC 07:57 | PROVIDERS: PCP Internal Medicine; Visit Provider Otolaryngology | DX: H90.6 Mixed conductive and sensorineural hearing loss, bilateral (principal); H93.13 Tinnitus, bilateral | CPT/HCPCS: 92557; 92567 ==

== ENCOUNTER 2024-08-18 15:26 | Outpatient (CLI) | payer MEDICARE, SELFPAY ==
--- NOTE | ~2024-08-18 | XR_ITS ---
XR foot RT min 3V Ordering provider: Annabelle Araiza NP History: . M79.673 - Pain in unspecified foot . Comparison: None. FINDINGS: BONES: No acute fracture or dislocation. Postoperative changes in the area of the first metatarsal sean ne. JOINT SPACES: Narrowing of the proximal and distal interphalangeal joints. Osteoarthritic changes of the first metatarsophalangeal joint. No tarsal coalition. SOFT TISSUES: Normal. Calcaneal spur. IMPRESSION: No acute osseous abnormality of the right foot. Postoperative changes in the first metatarsal bone. Osteoarthritic changes of the first metatarsophalangeal joint. Reviewed, dictated and finalized at location A.
--- NOTE | ~2024-08-18 | XR_ITS ---
XR ankle RT 2V Ordering provider: Annabelle Araiza NP History: . M79.673 - Pain in unspecified foot . Comparison: None. FINDINGS: BONES: No acute fracture or dislocation. Calcaneus spur. JOINT SPACES: Normal. SOFT TISSUES: Normal. IMPRESSION: No acute osseous abnormality of the right ankle. Reviewed, dictated and finalized at location A.
== END 2024-08-18 15:27 | disposition home or self-care (01) ==
LOC: ANHIMG 15:28
PROVIDERS: PCP Internal Medicine; Visit Provider Nurse Practitioner
DX: M19.071 Primary osteoarthritis, right ankle and foot (principal)
CPT/HCPCS: 73600; 73630

== ENCOUNTER 2024-09-10 07:04 | Day surgery (SDC) | payer MEDICARE, SELFPAY ==
[2024-08-25 14:38] VITALS: BMI 25.4
--- NOTE | 2024-09-10 06:40 | P.PNAN_ITS ---
Anes - Initial Pre Proc Eval Procedure: Operation Date: 09/10/24 09:15 Proposed Procedures p Right Index Finger A-1 Pully Release(Right) - Paramjit Salazar MD Date/Time: 09/10/24 06:40 Surgeon: Paramjit Salazar MD Pre Op Diagnosis: Trigger finger right index finger Patient Data Age: 74 Gender: F Height: 1.6 m Weight: 65 kg Allergies Allergy/AdvReac Type Severity Reaction Status Date / Time Penicillins Allergy Unknown Hives Verified 09/10/24 07:58 Home Medications Medication Instructions Recorded Confirmed Type aspirin 81 mg tablet,delayed 81 mg PO DAILY 11/09/22 09/10/24 History release (Adult Low Dose Aspirin) evolocumab 140 mg/mL subcutaneous See Rx Instructions .Route 04/20/24 09/10/24 Rx pen injector (Repatha SureClick) .COMPLEX #6 mL calcium carbonate 500 mg PO DAILY 08/25/24 09/10/24 History cholecalciferol (vitamin D3) 25 25 mcg PO DAILY 08/25/24 09/10/24 History mcg (1,000 unit) tablet (Vitamin D3) lisinopril 5 mg tablet 5 mg PO DAILY 08/25/24 09/10/24 History omega-3 fatty acids-vitamin E 1 cap PO DAILY 08/25/24 09/10/24 History 1,000 mg capsule omeprazole 40 mg capsule,delayed 40 mg PO DAILY 08/25/24 09/10/24 History release escitalopram oxalate 5 mg tablet 2.5 mg PO DAILY #45 tabs 08/27/24 09/10/24 Rx amlodipine 2.5 mg tablet 2.5 mg PO DAILY #90 tabs 09/02/24 09/10/24 Rx Patient hx anesthesia problems: none Family hx anesthesia problems: none Results Review: All pre-operative results and documents have been reviewed as part of the pre- operative evaluation. [facility] Past Medical History Medical History (Updated 09/10/24 @ 06:41 by Hemanth Yoon DO) Arthralgia Asthma Back pain Chicken pox CTS (carpal tunnel syndrome) Depression Elevated ferritin level GERD (gastroesophageal reflux disease) History of measles, mumps, or rubella Hyperlipidemia Hypertension Kevan's syndrome NARESH (obstructive sleep apnea) Polyarthralgia PVCs (premature ventricular contractions) Type 2 diabetes mellitus Vitamin D deficiency Surgical History Surgical History H/O total knee replacement (~03/2022) History of arthroscopic knee surgery bilateral History of bunionectomy of both great toes History of laparoscopic appendectomy 11/28/23 SAW Hx of cholecystectomy Family History Family History Father Family history of chronic obstructive pulmonary disease Mother Family history of malignant neoplasm of ovary Daughter Colorectal cancer Other Hypertension Social History Social History Social History: Caffeine-none Smoking status: Never smoker Tobacco type: cigarettes Second hand tobacco smoke exposure: Yes Alcohol intake: current Drinks per week: 1 Alcohol use details: occasional Substance use: never Substance use type: does not use Do You Feel Safe in your Home?: Yes Lack of Transportation: No Lack of Food: Never True Current Housing: I Have Housing Concerned About Future Housing: No Difficulty Paying Gas/Electric Bills: No Difficulty Paying for Meds: No Currently Unemployed: No Education: High School Diploma/GED Difficulty w/ Childcare or Family Care: No Living arrangements: with family Occupation/Education: retired Gender identity (if verbalized by the patient): Female Sexual Orientation (if Verbalized by the Patient): Straight or Heterosexual Spiritual care concerns: No Anes - Eval Final PreProcedure Day of Procedure 09/10/24 06:40 Patient weight: overweight Heart: regular rate and rhythm Lungs: clear to auscultation Airway: Mallampati scale class II Neurological: alert and oriented Last oral intake: >/= 8 hours ASA classification: III Emergent: no Anesthetic plan: proceed Anesthesia type and monitoring: general GIVS and standard monitoring Results Review: All pre-operative results and documents have been reviewed as part of the pre- operative evaluation. Informed Consent: The patient's anesthetic plan and its attendant risks and benefits were discussed with the patient/family/POA. Questions were solicited and answers provided to the satisfaction of the patient/family/POA.
--- NOTE | 2024-09-10 07:15 | PM.HPGS ---
History of Present Illness History of Present Illness Chief complaint: Trigger finger right index finger Narrative: Patient seen and examined in pre-operative holding area. No interval change in medical history or symptoms. Patient recalls previous discussion of benefits and alternatives to procedure. Continues to desire to proceed with right index finger a1 leny release. Reviewed procedure, post-op expectations and risks including but not limited to bleeding, infection, injury to tendon/nerve/vessel, decreased hand function, stiffness, RSD, no change or worsening of symptoms. I discussed the possible use of assistants and their participation in the case. Patient stated understanding and signed the consent form wishing to proceed. Review of Systems Review of Systems: All systems reviewed & are unremarkable except as noted in HPI and below PMFSH Past Medical History Medical History (Updated 09/10/24 @ 06:41 by Hemanth Yoon DO) Arthralgia Asthma Back pain Chicken pox CTS (carpal tunnel syndrome) Depression Elevated ferritin level GERD (gastroesophageal reflux disease) History of measles, mumps, or rubella Hyperlipidemia Hypertension Kevan's syndrome NARESH (obstructive sleep apnea) Polyarthralgia PVCs (premature ventricular contractions) Type 2 diabetes mellitus Vitamin D deficiency Surgical History Surgical History H/O total knee replacement (~03/2022) History of arthroscopic knee surgery bilateral History of bunionectomy of both great toes History of laparoscopic appendectomy 11/28/23 SAW Hx of cholecystectomy Family History Family History Father Family history of chronic obstructive pulmonary disease Mother Family history of malignant neoplasm of ovary Daughter Colorectal cancer Other Hypertension Social History Social History Social History: Caffeine-none Smoking status: Never smoker Tobacco type: cigarettes Second hand tobacco smoke exposure: Yes Alcohol intake: current Drinks per week: 1 Alcohol use details: occasional Substance use: never Substance use type: does not use Do You Feel Safe in your Home?: Yes Lack of Transportation: No Lack of Food: Never True Current Housing: I Have Housing Concerned About Future Housing: No Difficulty Paying Gas/Electric Bills: No Difficulty Paying for Meds: No Currently Unemployed: No Education: High School Diploma/GED Difficulty w/ Childcare or Family Care: No Living arrangements: with family Occupation/Education: retired Gender identity (if verbalized by the patient): Female Sexual Orientation (if Verbalized by the Patient): Straight or Heterosexual Spiritual care concerns: No Meds Home Medications and Allergies Home Medications Medication Instructions Recorded Confirmed Type aspirin 81 mg tablet,delayed 81 mg PO DAILY 11/09/22 09/10/24 History release (Adult Low Dose Aspirin) evolocumab 140 mg/mL subcutaneous See Rx Instructions .Route 04/20/24 09/10/24 Rx pen injector (Sisi Martin) .COMPLEX #6 mL calcium carbonate 500 mg PO DAILY 08/25/24 09/10/24 History cholecalciferol (vitamin D3) 25 25 mcg PO DAILY 08/25/24 09/10/24 History mcg (1,000 unit) tablet (Vitamin D3) lisinopril 5 mg tablet 5 mg PO DAILY 08/25/24 09/10/24 History omega-3 fatty acids-vitamin E 1 cap PO DAILY 08/25/24 09/10/24 History 1,000 mg capsule omeprazole 40 mg capsule,delayed 40 mg PO DAILY 08/25/24 09/10/24 History release escitalopram oxalate 5 mg tablet 2.5 mg PO DAILY #45 tabs 08/27/24 09/10/24 Rx amlodipine 2.5 mg tablet 2.5 mg PO DAILY #90 tabs 09/02/24 09/10/24 Rx Allergies Allergy/AdvReac Type Severity Reaction Status Date / Time Penicillins Allergy Unknown Hives Verified 09/10/24 07:58 Exam Narrative: unchanged Assessment and Plan Assessment and plan (1) Trigger finger, right index finger: Code(s): M65.321 - Trigger finger, right index finger Status: Acute Assessment and Plan: cont as above
--- NOTE | 2024-09-10 07:16 | P.OP_ITS ---
Procedure Note - Detailed Date of Procedure 09/10/24 Pre-op Diagnosis Trigger finger right index finger Post-op Diagnosis Same Procedure Performed right index finger a1 leny release Surgeon Paramjit Salazar MD Welding Process Specialist jay guzman pa-c Anesthesia MAC Description of Procedure INFORMED CONSENT: The patient was seen and examined and marked in the pre-op area.? The patient signed the consent form. PROCEDURE IN DETAIL:The patient taken back to OR on the stretcher in supine position. Time out performed with anesthesia, surgeon and staff agreeing on patient's name site and surgery to be performed SCDs were placed on the lower extremities and inflated. A tourniquet was placed on {right} upper extremity and antibiotics given IV After anesthesia administered sedation I injected {3}cc 1%lido and 0.5% marcaine plain at the operative site The?{right upper extremity}?was prepped and draped in sterile fashion the??{right upper extremity} was? exsanguinated with Esmarch bandage and tourniquet inflated to 250mmHg I made a longitudinal incision over the right index finger A1 leny through skin and dermis with a 15 blade scalpel. Littler scissors were used to spread down to the A1 leny. The A1 leny was identified and sharply incised initially with a 15 blade scalpel. Littler scissors were used to spread above it and below it proximally and distally and completed the transection entirely. Ragnell retractor was used withdrawal the FDS and FDP tendons for inspection. They were free of masses and synovitis and gliding smoothly in the sheath though a very minimal amount of fraying was noted on the fdp tendon. I irrigated with normal saline and closed with 4-0 chromic. A dressing of xeroform, 4x4, jolly, and an shad bandage was applied after the tourniquet was let down noting the hand was warm and well perfused. The patient was then awaken from anesthesia and transferred to the recovery room in stable condition.? Complications - none EBL- 0cc Disposition - home in stable conditions Jay Guzman PA-C was essential for positioning, retraction, closure and dressing placement AM Billing Surgery - Charge Forward: Surgery Billing ([id number] for jay)
[2024-09-10 08:04] VITALS: BMI 26.1
[2024-09-10 08:05] VITALS: BP 136/57; PULSE 66; RESP 18; TEMP 36; O2SAT 100
[2024-09-10] MEDS: LACTATED RINGERS 1,000 ML 30 ML IV CONT (08:24)
[2024-09-10 08:27] LABS: Glucose Point of Care 102 mg/dl (65-105)
[2024-09-10] MEDS: ceFAZolin SODIUM 2 GM/20 ML SW SYRINGE IV PUSH (08:40)
[2024-09-10] MEDS: LIDOCAINE HCL 1% LOCAL INJ 10 ML VIAL INFILTRATE (08:43)
[2024-09-10 08:55] VITALS: BP 118/54; PULSE 61; RESP 14; O2SAT 100
[2024-09-10 09:25] VITALS: BP 116/68; PULSE 65; RESP 16; O2SAT 98
[2024-09-10 09:40] VITALS: BP 132/63; PULSE 59; RESP 16; O2SAT 97
--- NOTE | 2024-09-10 12:59 | WPDANESPN ---
Anes - Prog Note Post-Op Date/Time: 09/10/24 12:59 Cardiovascular status: normal Respiratory status: normal Airway patency: baseline Mental status: baseline Post-Op hydration status: normal Vital Signs: Last Vital Signs Temp 36.0 C L 09/10/24 08:05 Pulse 59 L 09/10/24 09:40 Resp 16 09/10/24 09:40 BP 132/63 09/10/24 09:40 Pulse Ox 97 09/10/24 09:40 O2 Del Method Room Air 09/10/24 09:40 Pain Score (VAS): 0 I/O: Intake & Output 09/09/24 09/10/24 09/10/24 23:59 07:59 15:59 Intake Total 200 Balance 200 09/10/24 08:22 POC Capillary Glucose 102 Post-procedural complaints: none Patient Feedback: Patient satisfied with anesthetic care. Other Findings: Patient vital signs back to baseline. Patient denies nausea and vomiting. Patient's pain under control. Patient OK for discharge.
== END 2024-09-10 09:48 | disposition home or self-care (01) ==
PROVIDERS: PCP Internal Medicine; Visit Provider Plastic Surgery
PROC: (CPT 26055; principal; 2024-09-10 09:15)
DX: M65.321 Trigger finger, right index finger (principal)
CPT/HCPCS: 26055

== ENCOUNTER 2024-10-09 01:01 | Day surgery (SDC) | payer MEDICARE, SELFPAY ==
[2024-09-29 15:19] VITALS: BMI 25.7
[2024-10-09 10:54] VITALS: BP 124/56; PULSE 69; RESP 16; TEMP 36.1; O2SAT 100; BMI 25.7
[2024-10-09] MEDS: LACTATED RINGERS 1,000 ML 150 ML IV CONT (11:11)
--- NOTE | 2024-10-09 11:29 | P.PNAN_ITS ---
Anes - Initial Pre Proc Eval Procedure: Operation Date: 10/09/24 12:30 Proposed Procedures p Screening Colonoscopy - Santo Dasilva MD Date/Time: 10/09/24 11:29 Surgeon: Santo Dasilva MD Pre Op Diagnosis: screening colon Patient Data Age: 74 Gender: F Height: 1.6 m Weight: 65.8 kg Last Vital Signs Temp 36.1 C L 10/09/24 10:54 Pulse 69 10/09/24 10:54 Resp 16 10/09/24 10:54 BP 124/56 L 10/09/24 10:54 Pulse Ox 100 10/09/24 10:54 O2 Del Method Room Air 10/09/24 10:54 Allergies Allergy/AdvReac Type Severity Reaction Status Date / Time Penicillins Allergy Unknown Hives Verified 10/09/24 10:58 Home Medications ?Medication ?Instructions ?Recorded ?Confirmed ?Type aspirin 81 mg tablet,delayed 81 mg PO DAILY 11/09/22 10/09/24 History release (Adult Low Dose Aspirin) calcium carbonate 500 mg PO DAILY 08/25/24 10/09/24 History cholecalciferol (vitamin D3) 25 25 mcg PO DAILY 08/25/24 10/09/24 History mcg (1,000 unit) tablet (Vitamin D3) lisinopril 5 mg tablet 5 mg PO DAILY 08/25/24 10/09/24 History omeprazole 40 mg capsule,delayed 40 mg PO DAILY 08/25/24 10/09/24 History release escitalopram oxalate 5 mg tablet 2.5 mg (1/2 x 5 mg) PO DAILY #45 08/27/24 1 12/10/23 Rx tabs amlodipine 2.5 mg tablet 2.5 mg PO DAILY #90 tabs 09/02/24 10/09/24 Rx evolocumab 140 mg/mL subcutaneous See Rx Instructions .Route 10/01/24 10/09/24 Rx pen injector (Sisi Martin) .COMPLEX #6 mL Patient hx anesthesia problems: none Family hx anesthesia problems: none Results Review: All pre-operative results and documents have been reviewed as part of the pre- operative evaluation. [facility] Past Medical History Medical History NARESH (obstructive sleep apnea) Type 2 diabetes mellitus Vitamin D deficiency Elevated ferritin level Polyarthralgia Asthma GERD (gastroesophageal reflux disease) Kevan's syndrome Chicken pox History of measles, mumps, or rubella PVCs (premature ventricular contractions) Hyperlipidemia CTS (carpal tunnel syndrome) Arthralgia Hypertension Depression Back pain Surgical History Surgical History History of laparoscopic appendectomy 11/28/23 SAW H/O total knee replacement (~03/2022) History of bunionectomy of both great toes History of arthroscopic knee surgery bilateral Hx of cholecystectomy Family History Family History Father Family history of chronic obstructive pulmonary disease Mother Family history of malignant neoplasm of ovary Daughter Colorectal cancer Other Hypertension Social History Social History Social History: Caffeine-none Smoking status: Never smoker Tobacco type: cigarettes Second hand tobacco smoke exposure: Yes Alcohol intake: current Drinks per week: 1 Alcohol use details: occasional Substance use: never Substance use type: does not use Do You Feel Safe in your Home?: Yes Lack of Transportation: No Lack of Food: Never True Current Housing: I Have Housing Concerned About Future Housing: No Difficulty Paying Gas/Electric Bills: No Difficulty Paying for Meds: No Currently Unemployed: No Education: High School Diploma/GED Difficulty w/ Childcare or Family Care: No Living arrangements: with family Occupation/Education: retired Gender identity (if verbalized by the patient): Female Sexual Orientation (if Verbalized by the Patient): Straight or Heterosexual Spiritual care concerns: No Anes - Eval Final PreProcedure Day of Procedure 10/09/24 11:29 Patient weight: overweight Heart: regular rate and rhythm Lungs: clear to auscultation Airway: Mallampati scale class II Neurological: alert and oriented Last oral intake: >/= 8 hours ASA classification: III Emergent: no Anesthetic plan: proceed Anesthesia type and monitoring: general GIVS and standard monitoring Results Review: All pre-operative results and documents have been reviewed as part of the pre- operative evaluation. Informed Consent: The patient's anesthetic plan and its attendant risks and benefits were discussed with the patient/family/POA. Questions were solicited and answers provided to the satisfaction of the patient/family/POA.
[2024-10-09 11:54] LABS: Glucose Point of Care 74 mg/dl (65-105)
--- NOTE | 2024-10-09 11:55 | PM.IMHP ---
H&P: HPI History of Present Illness Date/Time: 10/09/24 11:55 Chief Complaint: History of colon polyps -family history of colorectal cancer. Narrative: The patient is here for surveillance colonoscopy. Her last colonoscopy was 5 years ago. Her 34-year-old Daughter was recently diagnosed with colorectal cancer. Review of Systems Review of Systems: All systems reviewed & are unremarkable except as noted in HPI and below PMFSH Past Medical History Medical History NARESH (obstructive sleep apnea) Type 2 diabetes mellitus Vitamin D deficiency Elevated ferritin level Polyarthralgia Asthma GERD (gastroesophageal reflux disease) Kevan's syndrome Chicken pox History of measles, mumps, or rubella PVCs (premature ventricular contractions) Hyperlipidemia CTS (carpal tunnel syndrome) Arthralgia Hypertension Depression Back pain Surgical History Surgical History History of laparoscopic appendectomy 11/28/23 SAW H/O total knee replacement (~03/2022) History of bunionectomy of both great toes History of arthroscopic knee surgery bilateral Hx of cholecystectomy Family History Family History Father Family history of chronic obstructive pulmonary disease Mother Family history of malignant neoplasm of ovary Daughter Colorectal cancer Other Hypertension Social History Social History Social History: Caffeine-none Smoking status: Never smoker Tobacco type: cigarettes Second hand tobacco smoke exposure: Yes Alcohol intake: current Drinks per week: 1 Alcohol use details: occasional Substance use: never Substance use type: does not use Do You Feel Safe in your Home?: Yes Lack of Transportation: No Lack of Food: Never True Current Housing: I Have Housing Concerned About Future Housing: No Difficulty Paying Gas/Electric Bills: No Difficulty Paying for Meds: No Currently Unemployed: No Education: High School Diploma/GED Difficulty w/ Childcare or Family Care: No Living arrangements: with family Occupation/Education: retired Gender identity (if verbalized by the patient): Female Sexual Orientation (if Verbalized by the Patient): Straight or Heterosexual Spiritual care concerns: No Meds Home Medications and Allergies Home Medications ?Medication ?Instructions ?Recorded ?Confirmed ?Type aspirin 81 mg tablet,delayed 81 mg PO DAILY 11/09/22 10/09/24 History release (Adult Low Dose Aspirin) calcium carbonate 500 mg PO DAILY 08/25/24 10/09/24 History cholecalciferol (vitamin D3) 25 25 mcg PO DAILY 08/25/24 10/09/24 History mcg (1,000 unit) tablet (Vitamin D3) lisinopril 5 mg tablet 5 mg PO DAILY 08/25/24 10/09/24 History omeprazole 40 mg capsule,delayed 40 mg PO DAILY 08/25/24 10/09/24 History release escitalopram oxalate 5 mg tablet 2.5 mg (1/2 x 5 mg) PO DAILY #45 08/27/24 10/09/24 Rx tabs amlodipine 2.5 mg tablet 2.5 mg PO DAILY #90 tabs 09/02/24 10/09/24 Rx evolocumab 140 mg/mL subcutaneous See Rx Instructions .Route 10/01/24 10/09/24 Rx pen injector ([email or web address]) .COMPLEX #6 mL Allergies Allergy/AdvReac Type Severity Reaction Status Date / Time Penicillins Allergy Unknown Hives Verified 10/09/24 10:58 Vital Signs Vital Signs - 24 hr 10/09/24 10:54 Temperature 96.9 F L Pulse Rate 69 Respiratory Rate 16 Blood Pressure 124/56 L Pulse Oximetry 100 Oxygen Delivery Room Air Exam Const: General: cooperative and healthy appearing Resp: Effort & Inspection: normal respiratory effort and able to speak in complete sentences Auscultation: clear to auscultation bilaterally Cardio: Rate: regular rate Rhythm: regular rhythm GI: Inspection: normal to inspection GI Palp: No No hepatosplenomegaly present Auscultation: normal bowel sounds Rectal Exam: deferred Skin: General skin exam: normal color Psych: Appearance: grossly normal Mental Status: mental status grossly normal Assessment and Plan Assessment and plan (1) Screening for colon cancer: Code(s): Z12.11 - Encounter for screening for malignant neoplasm of colon Status: Acute Assessment and Plan: The patient is deemed a good candidate for the procedure. Consent signed. Will proceed.
[2024-10-09 12:17] VITALS: BP 117/53; PULSE 62; RESP 22; O2SAT 99
[2024-10-09 12:27] VITALS: BP 120/58; PULSE 64; RESP 24; O2SAT 98
[2024-10-09 12:37] VITALS: BP 133/65; PULSE 64; RESP 18; O2SAT 100
== END 2024-10-09 12:51 | disposition home or self-care (01) ==
PROVIDERS: PCP Internal Medicine; Referring Provider Nurse Practitioner; Visit Provider Internal Medicine Gastroenterology
PROC: 0DJD8ZZ Inspection of Lower Intestinal Tract, Via Natural or Artificial Opening Endoscopic (ICD-10-PCS; CPT 45378; principal; 2024-10-09 12:30)
DX: Z12.11 Encounter for screening for malignant neoplasm of colon (principal); D12.2 Benign neoplasm of ascending colon; D12.4 Benign neoplasm of descending colon; E78.5 Hyperlipidemia, unspecified; I10 Essential (primary) hypertension; G47.33 Obstructive sleep apnea (adult) (pediatric); E11.9 Type 2 diabetes mellitus without complications; E55.9 Vitamin D deficiency, unspecified; J45.909 Unspecified asthma, uncomplicated; K21.9 Gastro-esophageal reflux disease without esophagitis; D86.9 Sarcoidosis, unspecified; G56.00 Carpal tunnel syndrome, unspecified upper limb; F32.A Depression, unspecified; I49.3 Ventricular premature depolarization; Z79.82 Long term (current) use of aspirin; Z79.85 Long-term (current) use of injectable non-insulin antidiabetic drugs; Z98.890 Other specified postprocedural states; Z90.49 Acquired absence of other specified parts of digestive tract; Z80.0 Family history of malignant neoplasm of digestive organs; Z80.41 Family history of malignant neoplasm of ovary
CPT/HCPCS: 45385; 82948; 88305; J2003; J2704; J7120

== ENCOUNTER 2025-03-19 13:27 | Emergency (ER) | payer MEDICARE, SELFPAY ==
--- NOTE | ~2025-03-19 | XR_ITS ---
XR knee LT 3V Ordering provider: Shirin Lee NP History: . pain posterior leg below knee . Comparison: None. FINDINGS: BONES: No acute fracture or dislocation. JOINT SPACES: Narrowing of the lateral compartment. Marginal osteophytes in the knee and patella. SOFT TISSUES: Normal. IMPRESSION: No acute osseous abnormality left knee. Moderate osteoarthritic changes. Reviewed, dictated and finalized at location A.
[2025-03-19 13:39] VITALS: BP 138/86; PULSE 71; RESP 16; TEMP 36.2; O2SAT 100
--- NOTE | 2025-03-19 14:13 | ED_ITS ---
HPI - Extremity Injury (Lower) General Chief Complaint: Extremity Injury, Lower Stated Complaint: L LOWER LEG PAIN Time Seen by Provider: 03/19/25 14:10 Source: patient, RN notes reviewed and old records reviewed Mode of arrival: ambulatory Limitations: no limitations History of Present Illness HPI Narrative: 74 year old female who presents to [facility] care with complaints of pain to the left lower leg at upper calf area posteriorly below the knee. Patient reports that she was lifting her golf clubs into her trunk of her car and felt a pop and pull at the posterior upper calf region below her knee. Patient reports that when she walks the pain does go up the back of her leg to thigh, states increased discomfort when when she flexes and extends foot. Patient reports no pain at posterior ankle or at Achilles insertion sites.Patient reports that [place] and applied ice to her leg prior to arrival to clinic. MD complaint: other (leg pain left lower leg) Onset (ago): day(s) (today around 1130) Place: street/outdoors Severity scale (1-10): 3 Treatments prior to arrival: cold therapy Related Data Home Medications ?Medication ?Instructions ?Recorded ?Confirmed ?Last Taken ?Type aspirin 81 mg tablet,delayed 81 mg PO DAILY 11/09/22 03/19/25 10/08/24 History release (Adult Low Dose Aspirin) cholecalciferol (vitamin D3) 25 25 mcg PO DAILY 08/25/24 03/19/25 10/08/24 History mcg (1,000 unit) tablet (Vitamin D3) calcium carbonate 2,000 mg PO DAILY 03/16/25 03/19/25 Unknown History Allergies Allergy/AdvReac Type Severity Reaction Status Date / Time Penicillins Allergy Unknown Hives Verified 03/19/25 13:47 Review of Systems Review of Systems: CONSTITUTIONAL: Denies fever, chills, or sweats. EYES: Denies visual changes, redness, or discharge. ENT: Denies rhinorrhea, congestion, sore throat, or otalgia. CARDIOVASCULAR: Denies chest pain, palpitations, or edema. RESPIRATORY: Denies cough or dyspnea. GASTROINTESTINAL: Denies abdominal pain, nausea, vomiting, or diarrhea. GENITOURINARY: Denies dysuria or hematuria. SKIN: Denies rash or itching. MUSCULOSKELETAL: Denies back pain,positive for pain to the posterior aspect of her left lower leg or myalgia. NEUROLOGIC: Denies headache, numbness, or weakness. PSYCHIATRIC: Reports history of anxiety or depression. All systems reviewed & are unremarkable except as noted in HPI and below PMFSH Past Medical History Medical History Sacral nerve stimulator present NARESH (obstructive sleep apnea) Type 2 diabetes mellitus Vitamin D deficiency Elevated ferritin level Polyarthralgia Asthma GERD (gastroesophageal reflux disease) Kevan's syndrome Chicken pox History of measles, mumps, or rubella PVCs (premature ventricular contractions) Hyperlipidemia CTS (carpal tunnel syndrome) Arthralgia Hypertension Depression Back pain Surgical History Surgical History History of laparoscopic appendectomy 11/28/23 SAW H/O total knee replacement (~03/2022) History of bunionectomy of both great toes History of arthroscopic knee surgery bilateral Hx of cholecystectomy Family History Family History Father Family history of chronic obstructive pulmonary disease Mother Family history of malignant neoplasm of ovary Daughter Colorectal cancer Other Hypertension Social History Social History Social History: Caffeine-none Smoking status: Never smoker Tobacco type: cigarettes Second hand tobacco smoke exposure: Yes Alcohol intake: current Drinks per week: 1 Alcohol use details: occasional Substance use: never Substance use type: does not use Do You Feel Safe in your Home?: Yes Lack of Transportation: No Lack of Food: Never True Current Housing: I Have Housing Concerned About Future Housing: No Difficulty Paying Gas/Electric Bills: No Difficulty Paying for Meds: No Currently Unemployed: No Education: High School Diploma/GED Difficulty w/ Childcare or Family Care: No Living arrangements: with family Occupation/Education: retired Gender identity (if verbalized by the patient): Female Sexual Orientation (if Verbalized by the Patient): Straight or Heterosexual Spiritual care concerns: No Comments At time of signature, agree with nursing past medical, surgical, social and family history. There is no relevant family history pertinent to the presenting complaint Exam Narrative: GENERAL: Well-appearing, well-nourished, and in no acute distress. HEAD: Normocephalic, atraumatic. EYES: PERRLA and EOMI. ENT: Nares clear, no rhinorrhea or epistaxis. Mucous membranes moist. NECK: Supple. no lymphadenopathy CHEST: Clear to auscultation. No respiratory distress.SAO2 100% on room air HEART: Regular rate and rhythm. No murmur heard. Normal peripheral pulses. ABDOMEN: Soft, nontender, nondistended, normal active bowel sounds. EXTREMITIES: Normal range of motion. No edema. Pain to the posterior aspect of her left lower leg upper calf area after lifting her golf clubs into car. Patient reports that pain is worse with ambulation and when she flexes and extend her foot. some radiation of pain to the posterior thigh, denies any tingling or numbness to leg or any pain at rest.Patient has strong pulses to the left leg. Patient denies any pain to the back of ankle or to achilles tendon insertion area. No pain to calf on palpation or any redness or swelling.. SKIN: Warm, dry, no rash. NEURO: No focal deficits. Alert and oriented x3. Course Course Emergency Course: Patient is aware of diagnosis, understands and agrees to treatment plan.? Anticipatory guidance given.? Patient agrees to follow-up as directed and is aware of reasons to seek care at the emergency department. Portions of this record may have been created with voice recognition software Level of Care: Express Care Visit Vital Signs Vital signs: Vital Signs Temperature 36.2 C L 03/19/25 13:39 Pulse Rate 71 03/19/25 13:39 Respiratory Rate 16 03/19/25 13:39 Blood Pressure 138/86 03/19/25 13:39 Pulse Oximetry 100 03/19/25 13:39 Temperature 36.2 C L 03/19/25 13:39 Pulse Rate 71 03/19/25 13:39 Respiratory Rate 16 03/19/25 13:39 Blood Pressure 138/86 03/19/25 13:39 Pulse Oximetry 100 03/19/25 13:39 Reviewed MDM - Extremity Injury (Lower) Differential Diagnosis Differential diagnosis: Likely other (muscle strain left lower leg, pain left lower leg, soleus muscle strain) Medical Records Attestation: I reviewed the patient's medical records. Imaging Data My impression: moderate osteoarthritic changes to left knee, no acute osseous abnormality Radiologist's impression: [facility] [address] [facility] [place] [address] XRay Report Signed Patient: Kayleen Nugent : 1950 MR#: [id number] Age: 74 Acct:[id number] Loc: [facility] ADM Date: 03/19/25Attending Dr: Ordering Physician: Shirin Lee APRN Date of Service: 03/19/25 Procedure(s): XR knee LT 3V Accession Number(s): [id number] cc: Shirin Lee APRN; Carlitos Giang DO~ XR knee LT 3V Ordering provider: Shirin Lee NP History: . pain posterior leg below knee . Comparison: None. FINDINGS: BONES: No acute fracture or dislocation. JOINT SPACES: Narrowing of the lateral compartment. Marginal osteophytes in the knee and patella. SOFT TISSUES: Normal. IMPRESSION: No acute osseous abnormality left knee. Moderate osteoarthritic changes. Reviewed, dictated and finalized at location A. Please be advised this is a medical document. It is intended for [id number] communication. It is written in medical language and may contain unfamiliar abbreviations or verbiage. Medical documents are intended to carry relevant information, facts as evident, and the clinical opinion of the practitioner at the time of the encounter. This report may have been done utilizing a voice recognition system. Attempts have been made to correct errors. However, there may be uncorrected grammatical, spelling, and recognition errors present. The file time of this note does not necessarily represent the time of service. Dictated By: Christiano Pichardo MD 03/19/25 1448 Signed By: <Electronically signed by Christiano Pichardo MD in OV> Critical Care Time Critical Care Time Critical Care Time: No Discharge Plan Discharge Clinical Impression: Pain in left lower leg Patient Disposition: Home Condition: Stable Instructions: Antibiotic Form, Leg Pain (ED) Additional Instructions: Elastic wrap or orthopedic splint as directed for comfort for the next 5-7 days Tylenol for lesser pain Ibuprofen regularly for the next 2-3 days for the inflammation Follow-up with orthopedic surgeon if continued pain Follow-up with PCP if further problems or concerns Ice to the area 20-30 minutes 4-6 times a day Elevate above heart If your symptoms persist, change or worsen significantly before you can contact your personal physician then please, without delay, go to the emergency department for further evaluation. Follow-up with PCP in 7-10 days or sooner if needed Follow up with PCP soon in regards to your blood pressure which is elevated above threshold for referral. Blood pressure above 120/80 may indicate pre- hypertension. 138/86 Patient Language: Welsh Prescriptions: No Action aspirin [Adult Low Dose Aspirin] 81 mg tablet,delayed release (DR/EC) 81 mg PO DAILY escitalopram oxalate 5 mg tablet 2.5 mg PO DAILY Qty: 45 1RF omeprazole 40 mg capsule,delayed release(DR/EC) See Rx Instructions .ROUTE .COMPLEX Qty: 90 1RF Dose Instruction: TAKE 1 CAPSULE BY MOUTH EVERY DAY Rx Instructions: TAKE 1 CAPSULE BY MOUTH EVERY DAY lisinopril 5 mg tablet See Rx Instructions .ROUTE .COMPLEX Qty: 90 1RF Dose Instruction: TAKE 1 TABLET BY MOUTH EVERY DAY Rx Instructions: TAKE 1 TABLET BY MOUTH EVERY DAY amlodipine 2.5 mg tablet 2.5 mg PO DAILY Qty: 90 1RF Rx Instructions: TAKE 1 TABLET BY MOUTH DAILY Repatha SureClick 140 mg/mL pen injector See Rx Instructions .ROUTE .COMPLEX Qty: 6 1RF Dose Instruction: INJECT 140MG (1ML) UNDER THE SKIN EVERY 2 WEEKS Rx Instructions: INJECT 140MG (1ML) UNDER THE SKIN EVERY 2 WEEKS cholecalciferol (vitamin D3) [Vitamin D3] 25 mcg (1,000 unit) Tablet 25 mcg PO DAILY calcium carbonate 500 mg calcium (1,250 mg) tablet 2,000 mg PO DAILY Follow-up/Referrals: Carlitos Giang DO [Primary Care Provider] - Time of Disposition: 15:01 Quality [place] Coma Scale Eyes: Open Verbal: Oriented and Alert Motor: Follows Commands Leonel Coma Total Score: 15
== END 2025-03-19 15:04 | disposition home or self-care (01) ==
PROVIDERS: Emergency Provider Registered Nurse; PCP Internal Medicine
DX: M79.662 Pain in left lower leg (principal); E11.9 Type 2 diabetes mellitus without complications; I10 Essential (primary) hypertension; E55.9 Vitamin D deficiency, unspecified; J45.909 Unspecified asthma, uncomplicated; K21.9 Gastro-esophageal reflux disease without esophagitis; E78.5 Hyperlipidemia, unspecified; Z96.82 Presence of neurostimulator; Z79.82 Long term (current) use of aspirin
CPT/HCPCS: 73562; 99213; G0463

== ENCOUNTER 2025-04-29 01:33 | Day surgery (SDC) | payer MEDICARE, SELFPAY ==
[2025-04-21 14:31] VITALS: BMI 26.5
--- NOTE | 2025-04-21 14:41 | PC.NURSE ---
Report to the Outpatient Waiting Room, entrance under the green pavilion located off [facility], at time __0730am on date ____04/29/25___. Planned Procedure Time: _0930am .? Time changes happen often and if your time is changed the preop area will call you the afternoon before. - You and your visitor will be asked to self-screen and do not enter if you have any COVID symptoms. Please call surgeon if you need to reschedule. - A mask is optional within the hospital at this time. Patients may have clear liquids (water, carbonated beverages, clear teas, apple juice) until 3 hours prior to surgery with a maximum of 20 ounces. - No food from midnight until time of surgery and no smoking, or chewing tobacco (or any form of nicotine). No chewing gum, candy or mints. ( 0630am) Take only the following medications with a SIP of water on the morning of surgery: ____Tylenol if needed DO NOT STOP ANY OF YOUR OTHER PRESCRIPTION MEDICATIONS PRIOR TO SURGERY EXCEPT THE FOLLOWING Hold all vitamins and supplements for 3 days per anesthesiologist.Last dose is 04/25/25. Medications to discontinue per physician No Aspirin, Aleve, Motrin for 7 days prior to surgery per Dr Beal Date to take last dose____04/21/25 Please no make-up, nail ghanaian, hairspray, perfume, deodorant, or body powder the day of surgery.? No jewelry (including any body piercings) or valuables the day of surgery, leave them at home.? Please take a shower or bath the night before, or the morning of, surgery with an antibacterial soap.? Wear comfortable, loose fitting clothing.? - Jewelry must be removed prior to entering the operating room.? Rings and piercings that are not removed may be cut off. - The hospital will not accept responsibility for valuables.? - Please leave all valuables, including medications, at home the day of surgery. If you are going home after surgery, a licensed road oiling truck driver must drive you home.? - NO public transportation without another adult if you receive anesthesia. - We recommend that an adult stay with you for 24 hours following discharge. - We also recommend that you do not drive, make important decision, drink alcoholic beverages, or take any drugs that were not prescribed by your health care provider for at least 24 hours after your discharge time. Follow any additional instructions given to you from your surgeon. Telephone instructions given to __Patient and asked if any additional questions and then verbalized understanding. Patient advised to call surgeon office or pre surgery nurse liaison [phone] if any additional questions.
--- NOTE | 2025-04-24 14:22 | PM.IMHP ---
H&P: HPI History of Present Illness Date/Time: 04/24/25 14:22 Chief Complaint: stress incontinence Narrative: desires surgical correction Review of Systems Review of Systems: All systems reviewed & are unremarkable except as noted in HPI and below PMFSH Past Medical History Medical History Sacral nerve stimulator present NARESH (obstructive sleep apnea) Type 2 diabetes mellitus Vitamin D deficiency Elevated ferritin level Polyarthralgia Asthma GERD (gastroesophageal reflux disease) Kevan's syndrome Chicken pox History of measles, mumps, or rubella PVCs (premature ventricular contractions) Hyperlipidemia CTS (carpal tunnel syndrome) Arthralgia Hypertension Depression Back pain Surgical History Surgical History History of laparoscopic appendectomy 11/28/23 SAW H/O total knee replacement (~03/2022) History of bunionectomy of both great toes History of arthroscopic knee surgery bilateral Hx of cholecystectomy Family History Family History Father Family history of chronic obstructive pulmonary disease Mother Family history of malignant neoplasm of ovary Daughter Colorectal cancer Other Hypertension Social History Social History Social History: Caffeine-none Smoking status: Never smoker Tobacco type: cigarettes Second hand tobacco smoke exposure: Yes Alcohol intake: current Drinks per week: 1 Alcohol use details: 1 every quarter 3 mos Substance use: never Substance use type: does not use Do You Feel Safe in your Home?: Yes Lack of Transportation: No Lack of Food: Never True Current Housing: I Have Housing Concerned About Future Housing: No Difficulty Paying Gas/Electric Bills: No Difficulty Paying for Meds: No Currently Unemployed: No Education: High School Diploma/GED Difficulty w/ Childcare or Family Care: No Living arrangements: with family Additional living arrangements comments: Occupation/Education: retired Gender identity (if verbalized by the patient): Female Sexual Orientation (if Verbalized by the Patient): Straight or Heterosexual Spiritual care concerns: No Meds Home Medications and Allergies Home Medications ?Medication ?Instructions ?Recorded ?Confirmed ?Type aspirin 81 mg tablet,delayed 81 mg PO DAILY 11/09/22 04/21/25 History release (Adult Low Dose Aspirin) cholecalciferol (vitamin D3) 25 25 mcg PO DAILY 08/25/24 04/21/25 History mcg (1,000 unit) tablet (Vitamin D3) omeprazole 40 mg capsule,delayed See Rx Instructions .Route 11/30/24 04/21/25 Rx release .COMPLEX #90 caps lisinopril 5 mg tablet See Rx Instructions .Route 02/15/25 04/21/25 Rx .COMPLEX #90 tabs amlodipine 2.5 mg tablet 2.5 mg PO DAILY #90 tabs 03/01/25 04/21/25 Rx calcium carbonate 2,000 mg PO DAILY 03/16/25 04/21/25 History escitalopram oxalate 5 mg tablet 2.5 mg (1/2 x 5 mg) PO DAILY #45 03/16/25 04/21/25 Rx tabs evolocumab 140 mg/mL subcutaneous See Rx Instructions .Route 03/16/25 04/21/25 Rx pen injector (Repatha SureClick) .COMPLEX #6 mL Allergies Allergy/AdvReac Type Severity Reaction Status Date / Time Penicillins Allergy Unknown Hives Verified 04/21/25 14:27 Exam Narrative: urethral mobility Assessment and Plan Assessment and plan (1) JUAN (stress urinary incontinence, female): Code(s): N39.3 - Stress incontinence (female) (male) Status: Acute Plan plan for urethral sling. Risks, benefits, alternatives all outlined in office chart
[2025-04-29] VITALS (8 sets, daily range): BP systolic 117–150; BP diastolic 42–69; PULSE 60–67; RESP 11–20; TEMP 36.4–36.9; O2SAT 98–100
--- OUTSIDE RECORDS SUMMARY | 2025-04-29 01:36 | XMS_ITS | Continuity of Care Document ---
Author Organization [facility] Address [address] [place] [address] [address] [place] [address] Phone Care Team Providers Care Rehab Assistant Name Role Phone April Ham Unavailable Unavailable Procedures Procedure Date Office/outpatient Visit, [facility] Advance Directives Directive Yes / No Effective Date File Name No Information Encounters Encounter Description Practice Location Reason(s) For Visit Diagnoses Date Provider Providers Copied on Encounter Office/outpat ient Visit, [facility], [address] [place] [address] [address], [place], [place], [id number], [place] tel:[phone] [facility] [place] No Information [address] [place] , [address], [place], [address], [place]. tel:[phone] Family History Family Member Type Diagnosis Age At Onset No Information Payers Payer name Insurance type Covered libertarian ID Authoriza timonica(s) [facility] CI [id number] Social History Type Description Quantity Date Captured Comments Sex Female Smoking Status No Information Chief Complaint And Reason For Visit No Information Reason For Referral Reason For Referral No Information History Of Present Illness Encounter Date Complaint History Of Prese nt Illness No Information Functional Status Date Functional Assessmen t No Information Instructions Date Instruction Additional Infor mation No Information Assessments Type Assessment Date No Information Patient Care Teams Name Effective Dates (start - stop) Status Members No Information
--- OUTSIDE RECORDS SUMMARY | 2025-04-29 01:36 | XMS_ITS | Clinical Summary ---
Author Organization [facility] Address [address] [place] [address] Care Team Providers Care Production Machinist Name Role Phone Oksana Olson Unavailable [phone] Carlitos Giang DO Primary Care Provider [phone] Allergies Active Allergy Reactions Criticality Noted Date Comments Cat Dander Shortness of breath High Penicillins Hives Reaction: Hives, Medications multivitamin tabletIndicati ons:Vitamin Deficiency Prevention Active Repatha SureClick 140 mg/mL pen injector INJECT 140 MG SUBCUTANEOUSLY EVERY 2 WEEKS 1 Active lisinopriL (PRINIVIL,ZEST RIL) 5 mg tablet 1 Active cholecalcifero l (VITAMIN D-3) 5,000 unit tablet Active omega 9-mzt-ica-fish oil 300-1,000 mg capsule 1 capsule Active escitalopram (LEXAPRO) 5 mg tablet Take 0.5 tablets (2.5 mg total) by mouth daily 2 Active amLODIPine (NORVASC) 2.5 mg tablet Take 1 tablet (2.5 mg total) by mouth daily Active aspirin 81 mg enteric coated tablet Take 1 tablet (81 mg total) by mouth 2 (two) times a day Take twice daily for 4 weeks after surgery then resume once per day 2 Active omeprazole (PriLOSEC) 40 mg capsule Take by mouth daily 3 Active calcium acetate,phosph at bind, (PHOSLO) 667 mg tablet Take 2 tablets (1,334 mg total) by mouth 3 (three) times a day with meals Active Active Problems Problem Noted Date Diagnosed Date History of total knee arthroplasty, right 2021 Metatarsalgia of right foot 07/23/2022 Overview (07/23/2022): Added automatically from request for surgery [id number] Acquired hammer toe of right foot 07/23/2022 Overview (07/23/2022): Added automatically from request for surgery [id number] Other chest pain 03/16/2022 Ventricular premature depolarization 03/16/2022 Pulmonary sarcoidosis 03/16/2022 Mixed diabetic hyperlipidemi a associated with type 2 diabetes mellitus 03/16/2022 Preoperative cardiovascular examination 03/16/20 22 Primary osteoarthritis of right knee 03/12/2022 Overview (03/12/2022): Added automatically from request for surgery [id number] Sensorineural hearing loss (SNHL) of both ears 0 12/12/2021 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 05/05/2021 Tinnitus of both ears 05/05/2021 Palpitations 09/15/2018 Breast cancer screening, high risk patient 07/01 Mixed hyperlipidemia 09/16/2015 Hypertension associated with diabetes 09/16/2015 Encounters Date Type Department Care Team Description 03/08/2025 Orders Only [facility] Surgery [address] [place] [address] 8 [place] [address] Aft, Quin Alvares MD PhD Breast cancer screening, high risk patient (Primary Dx); Atypical lobular hyperplasia (ALH) of right breast; Other specified disorders of breast 02/25/2025 1:00 PM CDT - 02/25/2025 11:59 PM CDT Hospital Encounter [facility] - Breast Imaging [address] [place] [address] 8 [place] [address] Breast cancer screening, high risk patient; Mammographic calcification found on diagnostic imaging of breast Discharge Disposition: Discharge to home or self care from Last 3 Months Immunizations Immunization Administration Dates Next Due Influenza, Quadrivalent, Hig h Dose, Preservative Free, Intrr 07/20/2020 Influenza, Trivalent, High D ose, Split, Preservative Free, Intramuscular 08/13/2018 Pfizer SARS-CoV-2 Monovalent Vaccination (12+ Yrs) PURPLE 09/18/2021,01/19/2021,12/29/2020 Pneumococcal Conjugate PCV 13 08/13/2018 ZOSTER Recombinant 01/28/2019,11/20/2018 Surgical History Surgery Date Site/Laterality Comments CHOLECYSTECTOMY Cholecystectomy TX BIOPSY BREAST OPEN INCISIONAL Biopsy Breast Open - (Added by TW Conv) TX TYMPANOPLASTY W/O MASTOIDECT W/O OSSICLE RECNSTJ Tympanoplasty - (Added by Conv) KNEE ARTHROSCOPY Bilateral BREAST BIOPSY 10/28/2018 - 10/27/2019 Right benign SACRAL NERVE STIMULATOR PLACEMENT SECTION 06/27/1988 JOINT REPLACEMENT Right knee total replacement. April 03, 2022 BLADDER SURGERY Sacral Nerve Stimulator implant 09/26/23 BREAST BIOPSY 03/12/2024 Right Medical History Medical History Date Comments Asthma Asthma Hx Other Medical IBS Allergy status to unspecifie d drugs, medicaments and biological substances status History of seasonal allergie s - (Added by Conv) Personal history of other di seases of the circulatory system History of hypertension - (Added by TW Conv) Allergic rhinitis Hypertension Hypercholesteremia Peripheral neuropathy Abnormality of heart beat Motion sickness Abnormal Pap smear of cervix Arthritis Sleep apnea Infection UTI, July 2023 Family History Medical History Relation Name Comments Colon cancer Daughter COPD Father David Bustos Hypertension Father David Bustos Family hist ory of hypertension - (Added by TW Conv) Lung disease Father David Bustos Family hist ory of lung disease - (Added by TW Conv) Cancer Mother Deana Bustos Family hist ory of cancer - (Added by TW Conv) Ovarian cancer Mother Deana Bustos Cancer, o varian; Cause of : Cancer, ovarian/Ovarian cancer - (Added by TW Conv) Arthritis Other Breast cancer Neg Hx Uterine cancer Neg Hx Relation Name Status Comments Daughter Father David Bustos Alive Mother Deana Bustos (Age 64) Other Social History Tobacco Use Types Packs/Day Years Used Date Smoking Tobacco: Never Smokeless Tobacco: Never Tobacco Cessation:Counseling Given: Not Answered Alcohol Use Standard Drinks/Week Comments Yes 0 (1 standard drink = 0.6 oz pur e alcohol) occasionally AUDIT-C Answer Date Recorded Q1: How often do you have a drink containing alc ohol? Monthly or less 04/03/2022 Average Number of Drinks Not on file 022 Q3: How often do you have si x or more drinks on one occasion? Less than monthly 04/03/2022 Comments No Sex and Gender Information Value Date Recorded Sex Assigned at Not on file Legal Sex Female 2:16 AM CLINICAL QUALITY MANAGER Gender Identity Female 05/18/2021 2:55 PM CDT Sexual Orientation Straight 09/09/2019 12 :06 PM CLINICAL QUALITY MANAGER Obstetrics History Para Term AB IAB SAB Ectopic Multiple Livin g Live Births 2 2 2 2 2 Date Outcome GA Total Labor Labor/2nd/3rd Weight Sex Type Anes PTL Bri A1 A5 Name Clin Term CS-LT ranv Living Term Vag-S pont Living Last Filed Vital Signs Vital Sign Reading Time Taken Comments Blood Pressure 156/71 05/09/2024 11:25 AM CDT Pulse 64 05/09/2024 11:25 AM CDT Temperature 36.5 C (97.7 F) 05/09/2024 11:25 AM CDT Respiratory Rate 16 05/09/2024 11:25 AM CDT Oxygen Saturation 100% 05/09/2024 11:25 AM CDT Inhaled Oxygen Concentration - - Weight 75.8 kg (167 lb) 05/09/2024 11:25 AM CDT Height 162.6 cm (5' 4) 05/09/2024 11:25 AM CDT Body Mass Index 28.67 05/09/2024 11:25 AM CDT Plan of Treatment Health Maintenance Due Date Last Done Comments Albumin Creatinine Ratio, Urine 1951 Colon Cancer Screening-Colonoscopy 1951 Depression Screening 1951 Fall Risk Assessment 1950 Hepatitis C Screening 1951 Osteoporosis Screening-Bone Density Scan 1951 Dilated Eye Exam 1951 Foot Exam 1951 DTaP/Tdap/Td Vaccine (1 - Tdap) 1962 Hepatitis B Screening 1969 Well Visit 65+ 2016 Pneumococcal vaccine 65+ (2 of 2 - PPSV23) 10/08/2018 08/13/2018 Hemoglobin A1C 2022 03/08/2022 eGFR 03/08/2023 03/08/2022 Lipid Panel 03/16/2023 03/16/2022 Covid-19 Vaccine (2023- 5 season) 2024 09/18/2021, 01/19/2021, 12/29/2020 Influenza Vaccine (Season Ended) 2025 07/20/20, 08/13/2018 Breast Cancer Screening-Mammogram 02/25/2026 02/25/2025, 07/17/2024, 02/26/2024, Additional history exists Zoster Vaccine Completed 01/28/2019, 11/20/2018 Medical Devices Implanted Type Area Rustic Fence Builder Device Identifier Shelf Expiration Date Model / Serial / Lot [employer] Cement Bone Simplex Gentamicin High Viscosity 40gm 6195-1-001 - [id number] Implanted:Qty: 1 on 04/03/2022 by Mikel Solares MD at [facility] Right: Knee [employer] 07/27/2023 [id number] / / [id number] [employer] [id number] Attune S+ Cement Fix Bearing Knee 4 Baseplate Tibial - [id number] Implanted:Qty: 1 on 04/03/2022 by Mikel Solares MD at [facility] Right: Knee [employer] 01/26/2032 [id number] / / [id number] [employer] Attune Cruciate Retain Cementless Knee Right 5 Narrow Component [id number] - [id number] Implanted:Qty: 1 on 04/03/2022 by Mikel Solares MD at [facility] Right: Knee [employer] 05/27/2031 [id number] / / [id number] [employer] Attune 6mm Cruciate Retaining Fix Bearing Knee 6 Insert Tibial [id number] - [id number] Implanted:Qty: 1 on 04/03/2022 by Mikel Solares MD at [facility] Right: Knee [employer] 01/25/2027 [id number] / / [id number] [employer] Eviva 13cm Identifier Biopsy Site [id number] - [id number] Implanted:Qty: 1 on 03/12/2024 by Amy Tyler MD at [facility] Right: Breast [employer] [id number] 12/18/2024 [employer]EVIVA -13 / / [id number] Procedures Procedure Name Priority Date/Time Associated Diagnosis Comments CONTRAST ENHANCED DIGITAL MAMMOGRAPHY BILATERAL Schedule Routine, Read Routine (OP Routine) 02/25/2025 1:48 PM CDT Breast cancer screening, high risk patient Mammographic calcification found on diagnostic imaging of breast POCT LIPID PANEL Routine 03/16/2022 11:2 9 AM CDT Lipid screening EGFR Routine 03/08/2022 11:16 AM CDT Pre-op testing HEMOGLOBIN A1C Routine 03/08/2022 11:16 AM CDT Pre-op testing from Last 3 Months or Most Recently Relevant to Health Maintenance Results * Contrast Enhanced Digital Mammography Bilateral (02/25/2025 1:48 PM CDT) Anatomical Region Laterality Modality Breast Bilateral Mammography 02/25/2025 2:36 PM CDT Impressions 02/25/2025 2:36 PM CDT 1. Unchanged small focus of enhancement in the upper left breast on the MLO view with possible correlate in the central left breast on the CC view. This remains probably benign. Recommend follow-up contrast enhanced mammogram in 12 months. 2. No new suspicious abnormality at the site of the biopsy-proven atypical lobular hyperplasia in the right breast denoted by the cork postbiopsy tissue marker. Recommend follow-up bilateral mammogram in 12 months to complete 24 months of follow-up. OVERALL FINAL ASSESSMENT: BI-RADS Category 3: Probably Benign. RECOMMENDATION: Recommend follow-up diagnostic breast imaging in 12 months with contrast-enhanced mammogram. Dr. Juliana Nguyen discussed the above findings and recommendations with the patient, who expressed her understanding of the management plan. Electronically signed by: Juliana Ngueyn M.D. Narrative 02/25/2025 2:36 PM CDT EXAMINATION: BILATERAL CONTRAST ENHANCED DIGITAL DIAGNOSTIC MAMMOGRAM WITH DIGITAL BREAST TOMOSYNTHESIS HISTORY: 74-year-old woman presenting for follow-up of a probably benign focus of enhancement in the upper left breast on contrast-enhanced mammogram dated 07/17/2024, which was without sonographic correlate. She also has a history of right breast atypical lobular hyperplasia on biopsy of calcifications in February 2024. COMPARISON: Multiple prior studies, most recently 07/17/2024 and dating back to 12/28/2022. TECHNIQUE: Full field digital mammographic views with digital breast tomosynthesis of BOTH breasts were performed including low energy and subtracted views following the uneventful administration of nonionic iodinated intravenous contrast material. CONTRAST: Optiray, 102 ml BREAST PARENCHYMAL COMPOSITION: There are scattered areas of fibroglandular density. BACKGROUND PARENCHYMAL ENHANCEMENT: Mild, symmetric FINDINGS: Low energy images: No new suspicious abnormality in either breast. There are changes of right breast excision. There is no new suspicious abnormality at the site of the biopsy-proven atypical lobular hyperplasia in the upper outer right breast noted by the cork postbiopsy tissue marker. Subtraction images: Redemonstrated is a small focus of enhancement in the upper left breast on the MLO view which is not significantly changed. There is a possible correlate in the central left breast on the CC view. Procedure Note Juliana Nguyen MD - 02/25/2025 EXAMINATION: BILATERAL CONTRAST ENHANCED DIGITAL DIAGNOSTIC MAMMOGRAM WITH DIGITAL BREAST TOMOSYNTHESIS HISTORY: 74-year-old woman presenting for follow-up of a probably benign focus of enhancement in the upper left breast on contrast-enhanced mammogram dated 07/17/2024, which was without sonographic correlate. She also has a history of right breast atypical lobular hyperplasia on biopsy of calcifications in February 2024. COMPARISON: Multiple prior studies, most recently 07/17/2024 and dating back to 12/28/2022. TECHNIQUE: Full field digital mammographic views with digital breast tomosynthesis of BOTH breasts were performed including low energy and subtracted views following the uneventful administration of nonionic iodinated intravenous contrast material. CONTRAST: Optiray, 102 ml BREAST PARENCHYMAL COMPOSITION: There are scattered areas of fibroglandular density. BACKGROUND PARENCHYMAL ENHANCEMENT: Mild, symmetric FINDINGS: Low energy images: No new suspicious abnormality in either breast. There are changes of right breast excision. There is no new suspicious abnormality at the site of the biopsy-proven atypical lobular hyperplasia in the upper outer right breast noted by the cork postbiopsy tissue marker. Subtraction images: Redemonstrated is a small focus of enhancement in the upper left breast on the MLO view which is not significantly changed. There is a possible correlate in the central left breast on the CC view. IMPRESSION: 1. Unchanged small focus of enhancement in the upper left breast on the MLO view with possible correlate in the central left breast on the CC view. This remains probably benign. Recommend follow-up contrast enhanced mammogram in 12 months. 2. No new suspicious abnormality at the site of the biopsy-proven atypical lobular hyperplasia in the right breast denoted by the cork postbiopsy tissue marker. Recommend follow-up bilateral mammogram in 12 months to complete 24 months of follow-up. OVERALL FINAL ASSESSMENT: BI-RADS Category 3: Probably Benign. RECOMMENDATION: Recommend follow-up diagnostic breast imaging in 12 months with contrast-enhanced mammogram. Dr. Juliana Nguyen discussed the above findings and recommendations with the patient, who expressed her understanding of the management plan. Electronically signed by: Juliana Nguyen M.D. Quin Walker MD PhD IMG MAMMO PROCEDURES Final Result * POCT lipid panel (03/16/2022 11:29 AM CDT) Cholesterol, POC 160 mg/dL HDL, POC 51 mg/dL Triglycerides, POC 230 mg/dL LDL Cholesterol POC 63 mg/dL Chol/HDL Ratio, POC 3.1 Comment:Glucose 99 Non-HDL Cholesterol, POC 109 mg/dL Cholesterol Total, POC 160 mg/dL Capillary blood 03/16/2022 1 1:29 AM CDT Thee Anne MD POINT OF CARE TEST ORDER MAUREEN Final Result * eGFR (03/08/2022 11:16 AM CDT) eGFR 82 mL/min/1. 73 m2 [facility] Comment: Interpretive Data Reference Interval Normal >/= 90 mL/min/1.73m2 Mildly decreased* 60 - 89 mL/min/1.73m2 Mildly to moderately decreased 45 - 59 mL/min/1.73m2 Moderately to severely decreased 30 - 44 mL/min/1.73m2 Severely decreased 15 - 29 mL/min/1.73m2 Kidney Failure < 15 mL/min/1.73m2 *Relative to young adult level Estimated glomerular filtration rate is determined by the 2020 CKD-EPI equation recommended by the National Kidney Foundation (A Unifying Approach to GFR Estimation: Recommendations of the NKF-ASK Task Force on Reassessing the Inclusion of Race in Diagnosing Kidney Disease, JASN 2020). The CKD-EPI equation should not be used for patients with unstable renal function and has not been validated in children and those over 70. Current interpretive data was last reviewed 2021. Blood 03/08/2022 11:1 6 AM CDT 03/08/2022 11:39 AM CDT Mikel Solares MD LAB BLOOD ORDERABLES Final R esult Performing Organization Address [facility] de Phone Number [facility] ([place]) [address] [facility] Department [place] [address] * Hemoglobin A1c (03/08/2022 11:16 AM CDT) [facility] Signature Hgb A1C 5.5 4.0 - 5.6 % [facility] Estimated Average Glucose 111 mg/dL [facility] Comment: The ADA recommends reporting an estimated Average Glucose (eAG) with all Hemoglobin A1c results using the equation derived from a study of 507 normal and diabetic adults. Minority populations were underrepresented and children were not included. (Diabetes Care 31:8712-4456, 2008). The eAG is not equivalent to a fasting glucose. Blood 03/08/2022 11:1 6 AM CDT 03/08/2022 11:39 AM CDT Mikel Solares MD LAB BLOOD ORDERABLES Final R esult Performing Organization Address [facility] Co de Phone Number [facility] ([place]) [address] [facility] [place] [address] from Last 3 Months or Most Recently Relevant to Health Maintenance Insurance AETNA MEDICARE [employer] [facility] AETNA MEDICARE AETNA MEDICARE Advance Directives For more information, please contact: [phone] * Full Code (Latest Code Status on File) Date Activated Date Inactivated Comments 04/03/2022 11:58 AM 04/03/2022 8:14 PM Care Teams Production Machinist Relationship Specialty Start Date End Date Carlitos Giang DO PCP - General Internal Medicine 01/01/24 Oksana Olson PA Physician Automotive Service Cashier Orthopedic Surgery 04/03/22
--- OUTSIDE RECORDS SUMMARY | 2025-04-29 01:36 | XMS_ITS | Referral Summary ---
Author Organization [facility] Address [address] [place] [address] Care Team Providers Care Offset Label Rewinder Name Role Phone Oksana Olson Unavailable [phone] Carlitos Giang DO Primary Care Provider [phone] Encounters Date Type Department Care Team Description 03/08/2025 Orders Only [facility] [address] [place] [address] Aft, Quin Alvares MD PhD Breast cancer screening, high risk patient (Primary Dx); Atypical lobular hyperplasia (ALH) of right breast; Other specified disorders of breast 02/25/2025 1:00 PM CDT - 02/25/2025 11:59 PM CDT Hospital Encounter [facility] - Breast Imaging [address] [place] [id number] Breast cancer screening, high risk patient; Mammographic calcification found on diagnostic imaging of breast Discharge Disposition: Discharge to home or self care from Last 3 Months Allergies Active Allergy Reactions Criticality Noted Date Comments Cat Dander Shortness of breath High Penicillins Hives Reaction: Hives, Medications multivitamin tabletIndicati ons:Vitamin Deficiency Prevention Active Repatha SureClick 140 mg/mL pen injector INJECT 140 MG SUBCUTANEOUSLY EVERY 2 WEEKS Active lisinopriL (PRINIVIL,ZEST RIL) 5 mg tablet 1 Active cholecalcifero l (VITAMIN D-3) 5,000 unit tablet Active omega 9-xvh-etm-fish oil 300-1,000 mg capsule 1 capsule Active [...] (07/23/2022): Added automatically from request for surgery [id number] Acquired hammer toe of right foot 07/23/2022 Overview (07/23/2022): Added automatically from request for surgery [id number] Other chest pain 03/16/2022 Ventricular premature depolarization 03/16/2022 Pulmonary sarcoidosis 03/16/2022 Mixed diabetic hyperlipidemi a associated with type 2 diabetes mellitus 03/16/2022 Preoperative cardiovascular examination 03/16/20 22 Primary osteoarthritis of right knee 03/12/2022 Overview (03/12/2022): Added automatically from request for surgery [id number] Sensorineural hearing loss (SNHL) of both ears 0 12/12/2021 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 05/05/2021 Tinnitus of both ears 05/05/2021 Palpitations 09/15/2018 Breast cancer screening, high risk patient 07/01 Mixed hyperlipidemia 09/16/2015 Hypertension associated with diabetes 09/16/2015 Immunizations Immunization Administration Dates Next Due Influenza, Quadrivalent, Hig h Dose, Preservative Free, Intrr 07/20/2020 Influenza, Trivalent, High D ose, Split, Preservative Free, Intramuscular 08/13/2018 Pfizer SARS-CoV-2 Monovalent Vaccination (12+ Yrs) PURPLE 09/18/2021,01/19/2021,12/29/2020 Pneumococcal Conjugate PCV 13 08/13/2018 ZOSTER Recombinant 01/28/2019,11/20/2018 Social History Tobacco Use Types Packs/Day Years [...] on file Legal 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 Gender Identity Female 05/18/2021 2:55 PM CDT Sexual Orientation Straight 09/09/2019 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 Last Filed Vital Signs Vital Sign Reading [...] 05/09/2024 11:25 AM CDT Plan of Treatment Not on file Medical Devices Implanted Type Area Human Resource Officer Device Identifier Shelf Expiration Date Model / Serial / Lot [employer] Cement Bone Simplex Gentamicin High Viscosity [facility] 6195-1-001 - [id number] Implanted:Qty: 1 on 04/03/2022 by Mikel Solares MD at [facility] Right: Knee [employer] 07/27/2023 6195-1-001 / / [id number] [employer] [id number] Attune S+ Cement Fix Bearing Knee 4 Baseplate Tibial - [id number] Implanted:Qty: 1 on 04/03/2022 by Mikel Solares MD at [facility] Right: Knee [employer] 01/26/2032 [id number] / / [id number] [employer] Attune Cruciate Retain Cementless Knee Right 5 Narrow Component [id number] - [id number] Implanted:Qty: 1 on 04/03/2022 by Mikel Solares MD at [facility] Right: Knee [employer] 05/27/2031 [id number] / / [id number] [employer] Attune 6mm Cruciate Retaining Fix Bearing Knee 6 Insert Tibial [id number] - [id number] Implanted:Qty: 1 on 04/03/2022 by Mikel Solares MD at [facility] Right: Knee [employer] 01/25/2027 [id number] / / [id number] CollabRx [facility] Eviva 13cm Identifier Biopsy Site Kyctc-Wsmwc-11 - [id number] Implanted:Qty: 1 on 03/12/2024 by mAy Tyler MD at [facility] Right: Breast [employer] [facility] [id number] 12/18/2024 [facility] -13 / / [id number] Procedures Procedure Name Priority Date/Time Associated Diagnosis [...] 12 months with contrast-enhanced mammogram. Dr. Juliana Ngueyn discussed the above findings and recommendations with the patient, who expressed her understanding of the management plan. Electronically signed by: Elham Hughes 02/25/2025 2:36 PM CDT EXAMINATION: BILATERAL CONTRAST [...] ORDERABLES Final R esult Performing Organization Address City/[facility] Co de Phone Number RODNEY SANTAMARIA (MOBILE) [address] [facility] [place] [address] * Hemoglobin A1c (03/08/2022 11:16 AM CDT) Hgb A1C 5.5 4.0 - 5.6 % [facility] (MOBILE) Estimated Average Glucose 111 mg/dL [facility] (MOBILE) Comment: The ADA recommends reporting an estimated Average Glucose (eAG) with all Hemoglobin A1c results using the equation derived from a study of 507 normal and diabetic adults. Minority populations were underrepresented and children were not included. (Diabetes Care 31:4482-1216, 2008). The eAG is not equivalent to a fasting glucose. Blood 03/08/2022 11:1 6 AM CDT 03/08/2022 11:39 AM CDT Mikel Solares MD LAB BLOOD ORDERABLES Final R esult Performing Organization Address City/[facility] Co de Phone Number [facility]ODNEY SANTAMARIA (MOBILE) [address] [place] [phone] from Last 3 Months or Most Recently Relevant to Health Maintenance Insurance AETNA MEDICARE [employer] [facility] AETNA MEDICARE AETNA MEDICARE [facility] Address: [address] [place] [address] Advance Directives For more information, please contact: [phone] * Full Code (Latest Code Status on File) Date Activated Date Inactivated Comments 04/03/2022 11:58 AM 04/03/2022 8:14 PM Care Teams Offset Label Rewinder Relationship Specialty Start Date End Date Carlitos Giang DO PCP - General Internal Medicine 01/01/24 Oksana Olson PA Physician Publication Distributor Orthopedic Surgery 04/03/22
--- OUTSIDE RECORDS SUMMARY | 2025-04-29 01:36 | XMS_ITS | Clinical Summary ---
Author Organization [facility] Address [address] [place] [address] Care Team Providers Care Automobile Service Writer Name Role Phone Carlitos Giang DO Primary Care Provider [phone] Source Comments [facility] and Associated Physician Practices is amultiple site organization consisting of ambulatory clinics and hospital sitesin [place], [place], [place] and [place]. This disclosure is being madepursuant to the Care Everywhere program and may not contain all information available regarding this patient. Last updated 18.[facility] [employer] Social History Tobacco Use Types Packs/Day Years Used Date Smoking Tobacco: Never Assessed Comments Unknown Sex and Gender Information Value Date Recorded Sex Assigned at Not on file Legal Sex Female 11:58 AM CDT Gender Identity Not on file Sexual Orientation Not on file Plan of Treatment Health Maintenance Due Date Last Done Comments BONE DENSITY TESTING 1950 COLOGUARD (AGES 45-75) - COL ON CA SCREENING 1950 COLON MONITORING 1950 COLONOSCOPY - COLON CA SCREENING 1950 CT COLONOGRAPHY - COLON CA SCREENING 1950 Colorectal Cancer Screening 1950 FIT - COLON CA SCREENING 1950 FLEX SIG - COLON CA SCREENING 1950 LIPID TESTING 1950 MAMMOGRAM 1950 HEPATITIS C SCREENING 09/03/1969 DTAP/TDAP/TD VACCINES (1 - Tdap) 1970 PNEUMOCOCCAL VACCINE 50+ (1 of 1 - PCV) 2001 ZOSTER VACCINE (1 of 2) 2001 COVID-19 VACCINE ( - 2023-2 5 season) 2024 DEPRESSION SCREENING 10/28/2024 MEDICARE AWV CALENDAR YEAR 2024 INFLUENZA VACCINE (Season Ended) 2025 Respiratory Syncytial Virus (RSV) Vaccine Pt: or over 60 yrs (1 - 1-dose 75+ series) 2026 HEPATITIS B VACCINE Aged Out No longe r eligible based on patient's age to complete this topic HIB VACCINE Aged Out No longer eligi ble based on patient's age to complete this topic HPV VACCINE Aged Out No longer eligi ble based on patient's age to complete this topic MENINGOCOCCAL (Group B) VACC INE SHARED DECISION-MAKING Aged Out No longer eligibl e based on patient's age to complete this topic MENINGOCOCCAL GROUPS A/C/Y/W VACCINE Aged Out No longer eligible b ased on patient's age to complete this topic Insurance AETNA MEDICARE ADV SELF PAY NO INSURANCE Member Subscriber Plan / Payer (Ef fective for All Dates) Name:Kayleen Nugent Member ID:Not on file Relation to Subscriber:Not on file Name:KAYLEEN NUGENT Subscriber ID:Not on file (Home) Address: [facility] [place] [address] Payer ID:Not on file Group ID:Not on file Type:Self Pay Address: [place], [place] AETNA MEDICARE ADV Care Teams Automobile Service Writer Relationship Specialty Start Date End Date Carlitos Giang DO PCP - General Internal Medicine 04/06/19
--- NOTE | 2025-04-29 07:13 | WPDHPUPDATE1 ---
History and Physical Update Update Date/Time: 04/29/25 07:13 History and Physical has been reviewed, including an updated exam of the patient. There are NO changes in the patient's condition. Risks, benefits, and alternatives have been discussed and questions answered. Patient agrees to proceed with procedure.
--- NOTE | 2025-04-29 09:09 | P.PNAN_ITS ---
Anes - Initial Pre Proc Eval Procedure: Operation Date: 04/29/25 09:30 Proposed Procedures p Urethral Sling - Master Beal MD Date/Time: 04/29/25 09:09 Surgeon: Master Beal MD Pre Op Diagnosis: stress incont Patient Data Age: 74 Gender: F Height: 1.6 m Weight: 69.8 kg Last Vital Signs Temp 36.4 C 04/29/25 07:42 Pulse 65 04/29/25 07:42 Resp 20 04/29/25 07:42 BP 148/50 H 04/29/25 07:42 Pulse Ox 100 04/29/25 07:42 O2 Del Method Room Air 04/29/25 07:42 Allergies Allergy/AdvReac Type Severity Reaction Status Date / Time Penicillins Allergy Unknown Hives Verified 04/29/25 07:45 Home Medications ?Medication ?Instructions ?Recorded ?Confirmed ?Type aspirin 81 mg tablet,delayed 81 mg PO DAILY 11/09/22 04/29/25 History release (Adult Low Dose Aspirin) cholecalciferol (vitamin D3) 25 25 mcg PO DAILY 08/25/24 04/29/25 History mcg (1,000 unit) tablet (Vitamin D3) omeprazole 40 mg capsule,delayed See Rx Instructions .Route 11/30/24 04/29/25 Rx release .COMPLEX #90 caps lisinopril 5 mg tablet See Rx Instructions .Route 02/15/25 04/29/25 Rx .COMPLEX #90 tabs amlodipine 2.5 mg tablet 2.5 mg PO DAILY #90 tabs 03/01/25 04/29/25 Rx calcium carbonate 2,000 mg PO DAILY 03/16/25 04/29/25 History escitalopram oxalate 5 mg tablet 2.5 mg (1/2 x 5 mg) PO DAILY #45 03/16/25 04/29/25 Rx tabs evolocumab 140 mg/mL subcutaneous See Rx Instructions .Route 03/16/25 04/29/25 Rx pen injector (Sisi Martin) .COMPLEX #6 mL Patient hx anesthesia problems: none Family hx anesthesia problems: none Results Review: All pre-operative results and documents have been reviewed as part of the pre- operative evaluation. [facility] Past Medical History Medical History Sacral nerve stimulator present NARESH (obstructive sleep apnea) Type 2 diabetes mellitus Vitamin D deficiency Elevated ferritin level Polyarthralgia Asthma GERD (gastroesophageal reflux disease) Kevan's syndrome Chicken pox History of measles, mumps, or rubella PVCs (premature ventricular contractions) Hyperlipidemia CTS (carpal tunnel syndrome) Arthralgia Hypertension Depression Back pain Surgical History Surgical History History of laparoscopic appendectomy 11/28/23 SAW H/O total knee replacement (~03/2022) History of bunionectomy of both great toes History of arthroscopic knee surgery bilateral Hx of cholecystectomy Family History Family History Father Family history of chronic obstructive pulmonary disease Mother Family history of malignant neoplasm of ovary Daughter Colorectal cancer Other Hypertension Social History Social History Social History: Caffeine-none Smoking status: Never smoker Tobacco type: cigarettes Second hand tobacco smoke exposure: Yes Alcohol intake: current Drinks per week: 1 Alcohol use details: 1 every quarter 3 mos Substance use: never Substance use type: does not use Do You Feel Safe in your Home?: Yes Lack of Transportation: No Lack of Food: Never True Current Housing: I Have Housing Concerned About Future Housing: No Difficulty Paying Gas/Electric Bills: No Difficulty Paying for Meds: No Currently Unemployed: No Education: High School Diploma/GED Difficulty w/ Childcare or Family Care: No Living arrangements: with family Additional living arrangements comments: Occupation/Education: retired Gender identity (if verbalized by the patient): Female Sexual Orientation (if Verbalized by the Patient): Straight or Heterosexual Spiritual care concerns: No Anes - Eval Final PreProcedure Day of Procedure 04/29/25 09:09 Patient weight: overweight Heart: regular rate and rhythm Lungs: clear to auscultation Airway: Mallampati scale class II Neurological: alert and oriented Last oral intake: >/= 8 hours ASA classification: III Emergent: no Anesthetic plan: proceed Anesthesia type and monitoring: general LMA and standard monitoring Results Review: All pre-operative results and documents have been reviewed as part of the pre- operative evaluation. Informed Consent: The patient's anesthetic plan and its attendant risks and benefits were discussed with the patient/family/POA. Questions were solicited and answers provided to the satisfaction of the patient/family/POA.
[2025-04-29] MEDS: ceFAZolin 2 GM/D5W 50 ML 2 GM/50 ML BAG IVPB (09:20)
[2025-04-29] MEDS: BUPIVACAINE/EPINEPHRINE 0.5% 30 ML VIAL 10 ML INFILTRATE (09:40)
[2025-04-29] MEDS: LACTATED RINGERS 1,000 ML 30 ML IV CONT (09:57)
[2025-04-29] MEDS: fentaNYL CITRATE INJ (*CRX) 100 MCG/2 ML VIAL 25 MCG IV PUSH ×2 (10:36→10:40)
--- NOTE | 2025-05-03 07:52 | W.PM.PROC2 ---
Procedure Note - Detailed Date of Procedure 04/29/25 Pre-op Diagnosis stress incont Post-op Diagnosis Same Procedure Performed mid urethral sling cystoscopy Surgeon Master Beal MD Anesthesia General Indications This is a female with confirm stress urinary incontinence. She desires surgical correction. She understands the risks of bleeding, infection, injury to the urinary tract, vaginal mesh extrusion, urinary tract mesh erosion, obstructive voiding requiring a secondary procedure, hip and leg pain, dyspareunia, inability to improve overactive bladder symptoms. She agrees to proceed. Description of Procedure She was correctly identified. Informed consent obtained. She was brought the operating room. She was given appropriate anesthesia. She was given appropriate perioperative antibiotics. A time-out performed. I marked out the site of the inner thigh incisions. I anesthetized the skin and made those incisions. I anesthetized the anterior vaginal wall over the mid urethra. I made a 1 cm incision. I dissected out laterally taking great care not to injure the refilled vaginal wall. I passed the helical trocars. First on the left. Then on the right. I did this from the thigh incision towards the vaginal incision. The sling was connected to the trocars and brought out through the thigh incision. I tensioned the sling appropriately. I cut and the plastic sheaths. I then closed the incision with 2 0 Vicryl. On cystoscopy there is no tumors or surgical artifact. There was no surgical artifact in the urethra. I cut the excess sling material. Close incisions with glue. She was awakened and transferred to the PACU in stable condition. Implants Urethral sling Drains No Packing No Pathology None sent Complications No immediate complications Condition Stable Disposition PACU
== END 2025-04-29 11:44 | disposition home or self-care (01) ==
PROVIDERS: PCP Internal Medicine; Visit Provider Urology
PROC: (CPT 57288; principal; 2025-04-29 09:30)
DX: N39.3 Stress incontinence (female) (male) (principal)
CPT/HCPCS: 57288; C1771; J0690; J1100; J2405; J2704; J3010; J7120